=== PATIENT | male | born 2000 | race Caucasian/White ===

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

== ENCOUNTER 2021-01-22 16:50 | Inpatient (IN) | payer OTHER ==
[2021-01-22 17:05] LABS: Glucose,Whole Blood 481 mg/dL (75-99)
[2021-01-22] MEDS ORDERED: INSULIN REGULAR 100 UNIT/ML VIAL IV ONE (17:32)
[2021-01-22] MEDS ORDERED: SODIUM CHLORIDE 0.9% 1,000 ML IV STA (17:32)
--- NOTE | 2021-01-22 17:36 | ED ---
Nausea/Vomiting/Diarrhea HPI - General Chief complaint: Nausea/Vomiting/Diarrhea Stated complaint: Vomiting/weakness Time Seen by Provider: 01/22/21 17:03 Source: patient Mode of arrival: ambulatory Limitations: no limitations - History of Present Illness Initial comments: 20-year-old male with history of uncontrolled type 1 diabetes presents to emergency Department with a chief complaint of nausea vomiting. Patient reports his symptoms began yesterday when he had nausea and multiple episodes of nonbilious and nonbloody vomiting. He denies any associated diarrhea but does report soft stools. Patient reports his most recent hemoglobin A1c reading was 11. Mother reports the patient is not controlling his diabetes well. States he is not taking his medication as directed. He has not seen an dump operator in quite some time. Mother also reported the patient is feeling more depressed than usual and possibly using street drugs. Patient denies any homicidal, suicidal thoughts or ideations. Patient currently lives alone - Related Data Home Medications Medication Instructions Recorded Confirmed Glucagon Emergency Kit 1 mg IM ONCE PRN 01/22/21 01/22/21 Insulin Glargine,Hum.rec.anlog 33 unit SQ HS 01/22/21 01/22/21 [Lantus Solostar] Insulin Lispro [humaLOG Kwikpen] See Protocol SQ ACHS 01/22/21 01/22/21 Allergies Allergy/AdvReac Type Severity Reaction Status Date / Time No Known Allergies Allergy Verified 01/22/21 18:39 Review of Systems ROS Statement: Those systems with pertinent positive or pertinent negative responses have been documented in the HPI. ROS Other: All systems not noted in ROS Statement are negative. Past Medical History Past Medical History: Diabetes Mellitus History of Any Multi-Drug Resistant Organisms: None Reported Past Surgical History: Ear Surgery, Tonsillectomy Past Psychological History: Anxiety, Depression Smoking Status: Current every day smoker Past Alcohol Use History: Occasional Past Drug Use History: Marijuana General Exam Limitations: no limitations General appearance: alert, in no apparent distress Head exam: Present: atraumatic, normocephalic, normal inspection Eye exam: Present: normal appearance, PERRL, EOMI Pupils: Present: normal accommodation ENT exam: Present: normal exam, normal oropharynx, mucous membranes moist, TM's normal bilaterally, normal external ear exam Neck exam: Present: normal inspection, full ROM. Absent: tenderness Respiratory exam: Present: normal lung sounds bilaterally. Absent: respiratory distress, wheezes, rales, rhonchi, stridor Cardiovascular Exam: Present: regular rate, normal rhythm, normal heart sounds. Absent: systolic murmur GI/Abdominal exam: Present: soft. Absent: distended, tenderness, guarding, rebound Extremities exam: Present: normal inspection, full ROM, normal capillary refill. Absent: tenderness, pedal edema, joint swelling Back exam: Present: normal inspection, full ROM. Absent: tenderness, CVA tenderness (R), CVA tenderness (L) Neurological exam: Present: alert, oriented X3 Psychiatric exam: Present: normal affect, normal mood Skin exam: Present: warm, dry, intact, normal color Course Vital Signs 01/22/21 16:57 Temperature 97.9 F Pulse Rate 99 Respiratory 20 Rate Blood Pressure 113/67 O2 Sat by Pulse 100 Oximetry Medical Decision Making - Medical Decision Making 20-year-old male with history of uncontrolled type 1 diabetes presents to emergency Department with a chief complaint of nausea vomiting. On physical examination, patient appears to have slightly dry mucous members. He is otherwise well-appearing with stable vital signs. CBC reveals mild leukocytosis which I suspect is reactive secondary to the vomiting. Patient has blood glucose of 480. Positive acetone. +4 glucose and ketones. Patient is in DKA. Anion gap 27. Patient was initially started on IV bolus fluids and 6 units of regular insulin. She will be started on DKA protocol. I discussed the case with Dr. Randall who will admit. Case also discussed with - Lab Data Result diagrams: 01/22/21 18:00 01/22/21 18:00 Lab Results 01/22/21 01/22/21 01/22/21 Range/Units 17:04 18:00 18:00 WBC 14.2 H (4.0-11.0) k/uL RBC 4.64 (4.30-5.90) m/uL Hgb 14.3 (13.0-17.5) gm/dL Hct 44.1 (39.0-53.0) % MCV 95.1 (80.0-100.0) fL MCH 30.9 (25.0-35.0) pg MCHC 32.5 (31.0-37.0) g/dL RDW 12.9 (11.5-15.5) % Plt Count 352 (150-450) k/uL MPV 7.4 Neutrophils % 78 % Lymphocytes % 15 % Monocytes % 5 % Eosinophils % 1 % Basophils % 0 % Neutrophils # 11.0 H (1.3-7.7) k/uL Lymphocytes # 2.1 (1.0-4.8) k/uL Monocytes # 0.7 (0-1.0) k/uL Eosinophils # 0.1 (0-0.7) k/uL Basophils # 0.0 (0-0.2) k/uL VBG pH (7.31-7.41) VBG pCO2 (37-51) mmHg VBG HCO3 (24-28) mmol/L Sodium (137-145) mmol/L Potassium (3.5-5.1) mmol/L Chloride (98-107) mmol/L Carbon Dioxide (22-30) mmol/L Anion Gap mmol/L BUN (9-20) mg/dL Creatinine (0.66-1.25) mg/dL Est GFR (CKD-EPI)AfAm (>60 ml/min/1.73 sqM) Est GFR (CKD-EPI)NonAf (>60 ml/min/1.73 sqM) Glucose (74-99) mg/dL POC Glucose (mg/dL) 481 H (75-99) mg/dL POC Glu [place] Laboratory Assistant ID Calcium (8.4-10.2) mg/dL Phosphorus (2.5-4.5) mg/dL Magnesium (1.6-2.3) mg/dL Total Bilirubin (0.2-1.3) mg/dL AST (17-59) U/L ALT (4-49) U/L Alkaline Phosphatase (38-126) U/L Total Protein (6.3-8.2) g/dL Albumin (3.5-5.0) g/dL Urine Color Colorless Urine Appearance Clear (Clear) Urine pH 5.0 (5.0-8.0) Ur Specific [place] 1.026 (1.001-1.035) Urine Protein Negative (Negative) Urine Glucose (UA) 4+ H (Negative) Urine Ketones 4+ H (Negative) Urine Blood Negative (Negative) Urine Nitrite Negative (Negative) Urine Bilirubin Negative (Negative) Urine Urobilinogen <2.0 (<2.0) mg/dL Ur Leukocyte Esterase Negative (Negative) Acetone, Qual (Negative) 01/22/21 01/22/21 Range/Units 18:00 18:00 WBC (4.0-11.0) k/uL RBC (4.30-5.90) m/uL Hgb (13.0-17.5) gm/dL Hct (39.0-53.0) % MCV (80.0-100.0) fL MCH (25.0-35.0) pg MCHC (31.0-37.0) g/dL RDW (11.5-15.5) % Plt Count (150-450) k/uL MPV Neutrophils % % Lymphocytes % % Monocytes % % Eosinophils % % Basophils % % Neutrophils # (1.3-7.7) k/uL Lymphocytes # (1.0-4.8) k/uL Monocytes # (0-1.0) k/uL Eosinophils # (0-0.7) k/uL Basophils # (0-0.2) k/uL VBG pH 7.22 L (7.31-7.41) VBG pCO2 23 L (37-51) mmHg VBG HCO3 9 L* (24-28) mmol/L Sodium 133 L (137-145) mmol/L Potassium 4.9 (3.5-5.1) mmol/L Chloride 98 (98-107) mmol/L Carbon Dioxide 8 L* (22-30) mmol/L Anion Gap 27 mmol/L BUN 17 (9-20) mg/dL Creatinine 0.91 (0.66-1.25) mg/dL Est GFR (CKD-EPI)AfAm >90 (>60 ml/min/1.73 sqM) Est GFR (CKD-EPI)NonAf >90 (>60 ml/min/1.73 sqM) Glucose 468 H (74-99) mg/dL POC Glucose (mg/dL) (75-99) mg/dL POC Glu [place] Laboratory Assistant ID Calcium 9.3 (8.4-10.2) mg/dL Phosphorus 4.1 (2.5-4.5) mg/dL Magnesium 1.9 (1.6-2.3) mg/dL Total Bilirubin 0.8 (0.2-1.3) mg/dL AST 19 (17-59) U/L ALT 20 (4-49) U/L Alkaline Phosphatase 139 H (38-126) U/L Total Protein 6.5 (6.3-8.2) g/dL Albumin 4.4 (3.5-5.0) g/dL Urine Color Urine Appearance (Clear) Urine pH (5.0-8.0) Ur Specific [place] (1.001-1.035) Urine Protein (Negative) Urine Glucose (UA) (Negative) Urine Ketones (Negative) Urine Blood (Negative) Urine Nitrite (Negative) Urine Bilirubin (Negative) Urine Urobilinogen (<2.0) mg/dL Ur Leukocyte Esterase (Negative) Acetone, Qual Positive (Negative) Disposition Clinical Impression: DKA (diabetic ketoacidoses) Disposition: ADMITTED IP TO THIS [facility] Condition: Fair Is patient prescribed a controlled substance at d/c from ED?: No Referrals: Umm Oconnor MD [Primary Care Provider] - 1-2 days Time of Disposition: 19:14
[2021-01-22 18:16] LABS: VBG PH 7.22 (7.31-7.41)
[2021-01-22 18:17] LABS: Basophils % (A) 0 %; Eosinophils # (A) 0.1 k/uL (0-0.7); Eosinophils % (A) 1 %; HCT 44.1 % (39.0-53.0); HGB 14.3 gm/dL (13.0-17.5); Lymphocytes # (A) 2.1 k/uL (1.0-4.8); Lymphocytes % (A) 15 %; MCH 30.9 pg (25.0-35.0); MCHC 32.5 g/dL (31.0-37.0); MCV 95.1 fL (80.0-100.0); Mean Platelet Volume 7.4; Monocytes # (A) 0.7 k/uL (0-1.0); Monocytes % (A) 5 %; Neutrophils % (A) 78 %; Platelet Count 352 k/uL (150-450); RBC 4.64 m/uL (4.30-5.90); RDW 12.9 % (11.5-15.5); WBC 14.2 k/uL (4.0-11.0)
[2021-01-22 18:19] LABS: Appearance,Urine Clear (Clear); Bilirubin,Urine Negative (Negative); Blood,Urine Negative (Negative); Color,Urine Colorless; Glucose,Urine (UA) 4+ (Negative); Leukocyte Esterase,Urine Negative (Negative); Nitrite,Urine Negative (Negative); Protein,Urine Negative (Negative); Specific Gravity,Urine 1.026 (1.001-1.035); Urobilinogen,Urine <2.0 mg/dL (<2.0)
[2021-01-22 18:28] LABS: ALT 20 U/L (4-49); AST 19 U/L (17-59); African American GFR (CKD) >90 (>60 ml/min/1.73 sqM); Albumin 4.4 g/dL (3.5-5.0); Alkaline Phosphatase 139 U/L (38-126); Anion Gap 27 mmol/L; Blood Urea Nitrogen 17 mg/dL (9-20); Calcium 9.3 mg/dL (8.4-10.2); Chloride 98 mmol/L (98-107); Glucose 468 mg/dL (74-99); Magnesium 1.9 mg/dL (1.6-2.3); Non-African American GFR(CKD) >90 (>60 ml/min/1.73 sqM); Phosphorus 4.1 mg/dL (2.5-4.5); Potassium 4.9 mmol/L (3.5-5.1); Sodium 133 mmol/L (137-145); Total Bilirubin 0.8 mg/dL (0.2-1.3); Total Protein 6.5 g/dL (6.3-8.2)
[2021-01-22 18:35] LABS: Carbon Dioxide 8 mmol/L (22-30)
[2021-01-22] MEDS ORDERED: SODIUM CHLORIDE 0.9% 1,000 ML IV SCH (18:45)
[2021-01-22] MEDS ORDERED: INSULIN REGULAR 100 UNIT in SODIUM CHLORIDE 0.9% 100 ML IV SCH (18:45)
[2021-01-22 18:46] LABS: Ketones,Urine 4+ (Negative)
[2021-01-22 20:28] VITALS: RESP 18
[2021-01-22 20:49] LABS: Glucose,Whole Blood 303 mg/dL (75-99)
[2021-01-22 22:06] LABS: Glucose,Whole Blood 271 mg/dL (75-99)
[2021-01-22 22:42] LABS: African American GFR (CKD) >90 (>60 ml/min/1.73 sqM); Anion Gap 12 mmol/L; Blood Urea Nitrogen 15 mg/dL (9-20); Carbon Dioxide 15 mmol/L (22-30); Chloride 108 mmol/L (98-107); Glucose 295 mg/dL (74-99); Non-African American GFR(CKD) >90 (>60 ml/min/1.73 sqM); Phosphorus 2.4 mg/dL (2.5-4.5); Potassium 3.7 mmol/L (3.5-5.1); Sodium 135 mmol/L (137-145)
[2021-01-22 22:56] LABS: Glucose,Whole Blood 214 mg/dL (75-99)
[2021-01-22] MEDS: D5-0.45% NACL WITH KCL 20MEQ/L 1,000 ML IV SCH (23:26)
[2021-01-23 00:09] LABS: Glucose,Whole Blood 160 mg/dL (75-99)
[2021-01-23 00:56] LABS: Glucose,Whole Blood 126 mg/dL (75-99)
[2021-01-23 01:56] LABS: Glucose,Whole Blood 104 mg/dL (75-99)
[2021-01-23 02:54] LABS: African American GFR (CKD) >90 (>60 ml/min/1.73 sqM); Anion Gap 6 mmol/L; Blood Urea Nitrogen 13 mg/dL (9-20); Carbon Dioxide 20 mmol/L (22-30); Chloride 111 mmol/L (98-107); Glucose 96 mg/dL (74-99); Non-African American GFR(CKD) >90 (>60 ml/min/1.73 sqM); Phosphorus 1.9 mg/dL (2.5-4.5); Potassium 3.6 mmol/L (3.5-5.1); Sodium 137 mmol/L (137-145)
[2021-01-23 03:00] LABS: Glucose,Whole Blood 90 mg/dL (75-99)
[2021-01-23] MEDS ORDERED: Phosphorus Replacement Protoco 1 EACH MISC MISCELLANE PRN (03:04)
[2021-01-23] MEDS ORDERED: INSULIN NPH 300 UNIT/3 ML VIAL SQ ONE (03:15)
[2021-01-23 03:30] LABS: Glucose,Whole Blood 87 mg/dL (75-99)
[2021-01-23] MEDS: SODIUM PHOSPHATE 10 MMOL in SODIUM CHLORIDE 0.9% 250 ML IVPB SCH ×2 (03:30→06:06)
[2021-01-23 04:31] LABS: Glucose,Whole Blood 108 mg/dL (75-99)
[2021-01-23] MEDS: D5-0.45% NACL WITH KCL 20MEQ/L 1,000 ML IV SCH ×2 (06:06→12:21)
[2021-01-23 07:02] LABS: Glucose,Whole Blood 139 mg/dL (75-99)
[2021-01-23] MEDS: INSULIN ASPART (NovoLOG) 100 UNIT/ML VIAL SQ SCH ×4 (07:05→12:21)
[2021-01-23 07:58] LABS: African American GFR (CKD) >90 (>60 ml/min/1.73 sqM); Anion Gap 5 mmol/L; Blood Urea Nitrogen 12 mg/dL (9-20); Carbon Dioxide 20 mmol/L (22-30); Chloride 111 mmol/L (98-107); Non-African American GFR(CKD) >90 (>60 ml/min/1.73 sqM); Potassium 4.2 mmol/L (3.5-5.1); Sodium 136 mmol/L (137-145)
[2021-01-23 12:19] LABS: Glucose,Whole Blood 225 mg/dL (75-99)
[2021-01-23 12:28] VITALS: BP 102/64; PULSE 60; TEMP 97.9
--- NOTE | 2021-01-23 15:32 | P.DS ---
Providers Date of admission: 01/22/21 19:19 Attending physician: Manjit Randall Consults: 01/22/21 19:15 Consult Physician Routine Consulting Provider: George López Consult Reason/Comments: Concern for depression, no homicidal or suicidal thoughts Do you want consulting provider notified?: Yes Primary care physician: Umm Oconnor Hospital Course: Please refer to my history of present illness for further details Patient Condition at Discharge: Fair Plan - Discharge Summary Discharge Rx Participant: Yes New Discharge Prescriptions: Continue Glucagon Emergency Kit 1 mg IM ONCE PRN PRN Reason: Hypoglycemia Insulin Lispro [humaLOG Kwikpen] See Protocol SQ ACHS #5 pen Insulin Glargine,Hum.rec.anlog [Lantus Solostar] 33 unit SQ HS #5 pen Discharge Medication List Glucagon Emergency Kit 1 mg IM ONCE PRN 01/22/21 [History] Insulin Glargine,Hum.rec.anlog [Lantus Solostar] 33 unit SQ HS #5 pen 01/23/21 [Rx] Insulin Lispro [humaLOG Kwikpen] See Protocol SQ ACHS #5 pen 01/23/21 [Rx] Follow up Appointment(s)/Referral(s): Rafael Connors MD [REFERRING] - 1 Week Umm Oconnor MD [Primary Care Provider] - 3 Days Patient Instructions/Handouts: Diabetic Ketoacidosis (DC) Discharge Disposition: HOME SELF-CARE
--- NOTE | 2021-01-23 15:32 | P.HPIM ---
History of Present Illness 20-year-old male came in with compensative nausea vomiting abdominal discomfort nonbilious vomiting found to be in diabetic ketoacidosis patient has type 1 diabetes mellitus and patient does appear to have diabetic peripheral neuropathy patient most recent hemoglobin A1c is around 11. Patient was admitted for diabetic ketoacidosis. Her his anion gap resolved patient is transitioned to subcutaneous insulin. Patient usually uses 33 units of long-acting insulin which she will resume along with sliding scale with each meal. Patient is noncompliant with his insulin patient misses insulin often. Patient denied any fever chills. Patient is clinically doing well will be discharged today and extensive counseling regarding compliance was provided. Prescriptions for his insulin was provided as well. Patient will be referred to mail sorter. Review of Systems REVIEW OF SYSTEMS: CONSTITUTIONAL: No fever, no malaise, no fatigue. HEENT: No recent visual problems or hearing problems. Denied any sore throat. CARDIOVASCULAR: No chest pain, orthopnea, PND, no palpitations, no syncope. PULMONARY: No shortness of breath, no cough, no hemoptysis. GASTROINTESTINAL: As mentioned in HPI NEUROLOGICAL: No headaches, no weakness, no numbness. HEMATOLOGICAL: Denies any bleeding or petechiae. GENITOURINARY: Denies any burning micturition, frequency, or urgency. MUSCULOSKELETAL/RHEUMATOLOGICAL: Denies any joint pain, swelling, or any muscle pain. ENDOCRINE: Denies any polyuria or polydipsia. The rest of the 14-point review of systems is negative. Past Medical History Past Medical History: Diabetes Mellitus History of Any Multi-Drug Resistant Organisms: None Reported Past Surgical History: Ear Surgery, Tonsillectomy Past Psychological History: Anxiety, Depression Smoking Status: Current every day smoker Past Alcohol Use History: Occasional Past Drug Use History: Marijuana Additional Drug Use History / Comment(s): smoke 1-2 cigs per day Medications and Allergies Home Medications Medication Instructions Recorded Confirmed Type Glucagon Emergency Kit 1 mg IM ONCE PRN 01/22/21 01/22/21 History Insulin Glargine,Hum.rec.anlog 33 unit SQ HS #5 pen 01/23/21 Rx [Lantus Solostar] Insulin Lispro [humaLOG Kwikpen] See Protocol SQ ACHS #5 pen 01/23/21 Rx Allergies Allergy/AdvReac Type Severity Reaction Status Date / Time No Known Allergies Allergy Verified 01/22/21 18:39 Physical Exam Vitals: Vital Signs Temp Pulse Pulse Resp BP BP Pulse Ox 01/23/21 12:00 97.9 F 60 18 102/64 100 01/23/21 08:00 97.8 F 64 18 93/59 100 01/23/21 04:00 97.7 F 72 18 96/51 98 01/23/21 00:00 98.1 F 75 18 109/64 100 01/22/21 20:27 76 18 120/76 99 01/22/21 20:00 98.2 F 88 16 103/58 100 01/22/21 16:57 97.9 F 99 20 113/67 100 Intake and Output 01/23/21 01/23/21 01/23/21 06:59 14:59 22:59 Intake Total 3305.407 Balance 3305.407 Intake: Intake, IV Titration 2825.407 Amount D5-0.45% NaCl with KCl 1000 20Meq/l 1,000 ml @ 150 mls/hr IV .Q6H40M MAURY Rx# :[id number] Insulin Regular 100 unit 25.407 In Sodium Chloride 0.9% 100 ml @ 0.1 UNITS/KG/HR 5.25 mls/hr IV .[id number] MAURY Rx#:[id number] Sodium Chloride 0.9% 1, 800 000 ml @ 200 mls/hr IV . Q5H [facility]URY Rx#:[id number] Sodium Chloride 0.9% 1, 1000 000 ml @ 999 mls/hr IV . Q1H1M STA Rx#:[id number] Oral 480 Other: Voiding Method Toilet # Voids 3 Weight 52 kg PHYSICAL EXAMINATION: GENERAL: The patient is alert and oriented x3, not in any acute distress. Well developed, well nourished. HEENT: Pupils are round and equally reacting to light. EOMI. No scleral icterus. No conjunctival pallor. Normocephalic, atraumatic. No pharyngeal erythema. No thyromegaly. CARDIOVASCULAR: S1 and S2 present. No murmurs, rubs, or gallops. PULMONARY: Chest is clear to auscultation, no wheezing or crackles. ABDOMEN: Soft, nontender, nondistended, normoactive bowel sounds. No palpable organomegaly. MUSCULOSKELETAL: No joint swelling or deformity. EXTREMITIES: No cyanosis, clubbing, or pedal edema. NEUROLOGICAL: Gross neurological examination did not reveal any focal deficits. SKIN: No rashes. Results CBC & Chem 7: 01/22/21 18:00 01/23/21 07:04 Labs: Abnormal Lab Results - Last 24 Hours (Table) 01/22/21 01/22/21 01/22/21 Range/Units 17:04 18:00 18:00 WBC 14.2 H (4.0-11.0) k/uL Neutrophils # 11.0 H (1.3-7.7) k/uL VBG pH (7.31-7.41) VBG pCO2 (37-51) mmHg VBG HCO3 (24-28) mmol/L Sodium (137-145) mmol/L Chloride (98-107) mmol/L Carbon Dioxide (22-30) mmol/L Creatinine (0.66-1.25) mg/dL Glucose (74-99) mg/dL POC Glucose (mg/dL) 481 H (75-99) mg/dL Phosphorus (2.5-4.5) mg/dL Alkaline Phosphatase (38-126) U/L Urine Glucose (UA) 4+ H (Negative) Urine Ketones 4+ H (Negative) 01/22/21 01/22/21 01/22/21 Range/Units 18:00 18:00 20:47 WBC (4.0-11.0) k/uL Neutrophils # (1.3-7.7) k/uL VBG pH 7.22 L (7.31-7.41) VBG pCO2 23 L (37-51) mmHg VBG HCO3 9 L* (24-28) mmol/L Sodium 133 L (137-145) mmol/L Chloride (98-107) mmol/L Carbon Dioxide 8 L* (22-30) mmol/L Creatinine (0.66-1.25) mg/dL Glucose 468 H (74-99) mg/dL POC Glucose (mg/dL) 303 H (75-99) mg/dL Phosphorus (2.5-4.5) mg/dL Alkaline Phosphatase 139 H (38-126) U/L Urine Glucose (UA) (Negative) Urine Ketones (Negative) 01/22/21 01/22/21 01/22/21 Range/Units 21:56 22:04 22:55 WBC (4.0-11.0) k/uL Neutrophils # (1.3-7.7) k/uL VBG pH (7.31-7.41) VBG pCO2 (37-51) mmHg VBG HCO3 (24-28) mmol/L Sodium 135 L (137-145) mmol/L Chloride 108 H (98-107) mmol/L Carbon Dioxide 15 L (22-30) mmol/L Creatinine (0.66-1.25) mg/dL Glucose 295 H (74-99) mg/dL POC Glucose (mg/dL) 271 H 214 H (75-99) mg/dL Phosphorus 2.4 L (2.5-4.5) mg/dL Alkaline Phosphatase (38-126) U/L Urine Glucose (UA) (Negative) Urine Ketones (Negative) 01/23/21 01/23/21 01/23/21 Range/Units 00:07 00:54 01:55 WBC (4.0-11.0) k/uL Neutrophils # (1.3-7.7) k/uL VBG pH (7.31-7.41) VBG pCO2 (37-51) mmHg VBG HCO3 (24-28) mmol/L Sodium (137-145) mmol/L Chloride (98-107) mmol/L Carbon Dioxide (22-30) mmol/L Creatinine (0.66-1.25) mg/dL Glucose (74-99) mg/dL POC Glucose (mg/dL) 160 H 126 H 104 H (75-99) mg/dL Phosphorus (2.5-4.5) mg/dL Alkaline Phosphatase (38-126) U/L Urine Glucose (UA) (Negative) Urine Ketones (Negative) 01/23/21 01/23/21 01/23/21 Range/Units 02:30 04:28 06:56 WBC (4.0-11.0) k/uL Neutrophils # (1.3-7.7) k/uL VBG pH (7.31-7.41) VBG pCO2 (37-51) mmHg VBG HCO3 (24-28) mmol/L Sodium (137-145) mmol/L Chloride 111 H (98-107) mmol/L Carbon Dioxide 20 L (22-30) mmol/L Creatinine 0.54 L (0.66-1.25) mg/dL Glucose (74-99) mg/dL POC Glucose (mg/dL) 108 H 139 H (75-99) mg/dL Phosphorus 1.9 L (2.5-4.5) mg/dL Alkaline Phosphatase (38-126) U/L Urine Glucose (UA) (Negative) Urine Ketones (Negative) 01/23/21 01/23/21 Range/Units 07:04 11:54 WBC (4.0-11.0) k/uL Neutrophils # (1.3-7.7) k/uL VBG pH (7.31-7.41) VBG pCO2 (37-51) mmHg VBG HCO3 (24-28) mmol/L Sodium 136 L (137-145) mmol/L Chloride 111 H (98-107) mmol/L Carbon Dioxide 20 L (22-30) mmol/L Creatinine 0.54 L (0.66-1.25) mg/dL Glucose (74-99) mg/dL POC Glucose (mg/dL) 225 H (75-99) mg/dL Phosphorus (2.5-4.5) mg/dL Alkaline Phosphatase (38-126) U/L Urine Glucose (UA) (Negative) Urine Ketones (Negative) Assessment and Plan Plan: -Diabetic ketoacidosis: Due to noncompliance with his medications DKA resolved patient will be discharged today with the above-mentioned plan -Type 2 diabetes mellitus -Diabetic peripheral neuropathy -Hypovolemic hyponatremia resolved with IV fluids -Anion gap metabolic acidosis secondary to DKA resolved. -Leukocytosis reactive.
[2021-01-23] MEDS ORDERED: INSULIN DETEMIR (LEVEMIR) 100 UNIT/ML SYR SQ SCH (21:00)
== END 2021-01-23 14:42 | disposition home or self-care (01) | DRG 638 ==
LOC: EC 16:50 → 3SCARD 19:19
PROVIDERS: ADMIT Hospitalist; ATTEND Hospitalist
DX: E10.10 Type 1 diabetes mellitus with ketoacidosis without coma (principal); E87.1 Hypo-osmolality and hyponatremia; E10.42 Type 1 diabetes mellitus with diabetic polyneuropathy; Z79.4 Long term (current) use of insulin; Z20.822 Contact with and (suspected) exposure to COVID-19; E86.1 Hypovolemia; T38.3X6A Underdosing of insulin and oral hypoglycemic [antidiabetic] drugs, initial encounter; F17.200 Nicotine dependence, unspecified, uncomplicated; D72.829 Elevated white blood cell count, unspecified; Z91.128 Patient's intentional underdosing of medication regimen for other reason; Z86.59 Personal history of other mental and behavioral disorders
CPT/HCPCS: 36415; 80051; 80053; 81003; 82009; 82565; 82803; 82947; 83735; 84100; 84520; 85025; 87635; 96361; 96374; 99285

== ENCOUNTER 2021-04-16 11:45 | Inpatient (IN) | payer OTHER ==
[2021-04-16] MEDS ORDERED: ONDANSETRON 4 MG/2 ML VIAL IVP STA (12:04)
[2021-04-16] MEDS ORDERED: SODIUM CHLORIDE 0.9% 1,000 ML IV STA (12:05)
[2021-04-16 12:32] LABS: Basophils # (A) 0.1 k/uL (0-0.2); Basophils % (A) 1 %; Eosinophils # (A) 0.1 k/uL (0-0.7); Eosinophils % (A) 1 %; HCT 48.7 % (39.0-53.0); HGB 15.9 gm/dL (13.0-17.5); Lymphocytes # (A) 1.7 k/uL (1.0-4.8); Lymphocytes % (A) 24 %; MCH 31.7 pg (25.0-35.0); MCHC 32.6 g/dL (31.0-37.0); MCV 97.3 fL (80.0-100.0); Mean Platelet Volume 8.2; Monocytes # (A) 0.3 k/uL (0-1.0); Monocytes % (A) 4 %; Neutrophils % (A) 68 %; Platelet Count 306 k/uL (150-450); RBC 5.01 m/uL (4.30-5.90); RDW 12.5 % (11.5-15.5); WBC 7.4 k/uL (4.0-11.0)
[2021-04-16 12:32] LABS: Appearance,Urine Clear (Clear); Bilirubin,Urine Negative (Negative); Blood,Urine Negative (Negative); Color,Urine Colorless; Glucose,Urine (UA) 4+ (Negative); Leukocyte Esterase,Urine Negative (Negative); Nitrite,Urine Negative (Negative); Protein,Urine Negative (Negative); Specific Gravity,Urine 1.028 (1.001-1.035); Urobilinogen,Urine <2.0 mg/dL (<2.0)
[2021-04-16 12:43] LABS: ALT 28 U/L (4-49); AST 25 U/L (17-59); African American GFR (CKD) >90 (>60 ml/min/1.73 sqM); Albumin 4.8 g/dL (3.5-5.0); Alkaline Phosphatase 182 U/L (38-126); Anion Gap 24 mmol/L; Blood Urea Nitrogen 20 mg/dL (9-20); Calcium 9.8 mg/dL (8.4-10.2); Carbon Dioxide 13 mmol/L (22-30); Chloride 97 mmol/L (98-107); Magnesium 2.1 mg/dL (1.6-2.3); Non-African American GFR(CKD) >90 (>60 ml/min/1.73 sqM); Potassium 4.9 mmol/L (3.5-5.1); Sodium 134 mmol/L (137-145); Total Bilirubin 0.7 mg/dL (0.2-1.3)
[2021-04-16 12:47] LABS: Amphetamine Screen,Urine Not Detected (NotDetected); Barbiturate Screen,Urine Not Detected (NotDetected); Benzodiazepines Screen,Urine Not Detected (NotDetected); Cocaine Screen,Urine Not Detected (NotDetected); Methadone Screen, Urine Not Detected (NotDetected); Opiate Screen,Urine Not Detected (NotDetected); Oxycodone Screen, Urine Not Detected (NotDetected); Phencyclidine Screen,Urine Not Detected (NotDetected); Tricyclic Antidepressant,Urine Not Detected (NotDetected); Urn Cannabinoid Scrn Detected (NotDetected)
[2021-04-16 12:52] LABS: Glucose 543 mg/dL (74-99)
--- NOTE | 2021-04-16 12:53 | ED ---
General Adult HPI - General Chief complaint: Recheck/Abnormal Lab/Rx Stated complaint: High sugar Time Seen by Provider: 04/16/21 11:47 Source: patient, EMS, RN notes reviewed Mode of arrival: EMS Limitations: no limitations - History of Present Illness Initial comments: This a 20-year-old male presents emergency Department with chief complaint of hyperglycemia. Patient states he gets take his long-acting insulin. He did not give himself any short acting insulin today. Patient states which has been elevated. Patient states he felt nauseated slightly dizzy while he was driving pulled over called EMS. Patient did have some nausea vomiting emergency department. No which chest pain back pain or dysuria has noted urinary frequency and increased thirst again. - Related Data Home Medications Medication Instructions Recorded Confirmed Glucagon Emergency Kit 1 mg IM ONCE PRN 01/22/21 01/22/21 Previous Rx's Medication Instructions Recorded Insulin Glargine,Hum.rec.anlog 33 unit SQ HS #5 pen 01/23/21 [Lantus Solostar] Insulin Lispro [humaLOG Kwikpen] See Protocol SQ ACHS #5 pen 01/23/21 Allergies Allergy/AdvReac Type Severity Reaction Status Date / Time No Known Allergies Allergy Verified 01/22/21 18:39 Review of Systems ROS Statement: Those systems with pertinent positive or pertinent negative responses have been documented in the HPI. ROS Other: All systems not noted in ROS Statement are negative. Past Medical History Past Medical History: Diabetes Mellitus History of Any Multi-Drug Resistant Organisms: None Reported Past Surgical History: Ear Surgery, Tonsillectomy Past Psychological History: Anxiety, Depression Smoking Status: Current every day smoker Past Alcohol Use History: Occasional Past Drug Use History: Marijuana General Exam Limitations: no limitations General appearance: alert, in no apparent distress Head exam: Present: atraumatic, normocephalic, normal inspection Eye exam: Present: normal appearance, PERRL, EOMI. Absent: scleral icterus, conjunctival injection, periorbital swelling Neck exam: Present: normal inspection. Absent: tenderness, meningismus, lymphadenopathy Respiratory exam: Present: normal lung sounds bilaterally. Absent: respiratory distress, wheezes, rales, rhonchi, stridor Cardiovascular Exam: Present: regular rate, normal rhythm, normal heart sounds. Absent: systolic murmur, diastolic murmur, rubs, gallop, clicks GI/Abdominal exam: Present: soft, normal bowel sounds. Absent: distended, tenderness, guarding, rebound, rigid Neurological exam: Present: alert Skin exam: Present: warm, dry, intact, normal color. Absent: rash Course Vital Signs 04/16/21 04/16/21 11:48 13:14 Temperature 97.9 F Pulse Rate 91 86 Respiratory 18 16 Rate Blood Pressure 113/78 109/66 O2 Sat by Pulse 100 99 Oximetry Medical Decision Making - Medical Decision Making 20-year-old male presents emergency from for hyperglycemia. Patient found to be in DKA. Patient's bicarbonate 13, anion gap 24. Patient was started on IV fluids including 2 L bolus, maintenance fluids, insulin drip case discussed with Mallika physician. - Lab Data Result diagrams: 04/16/21 12:13 04/16/21 12:13 Lab Results 04/16/21 04/16/21 04/16/21 Range/Units 12:13 12:13 12:14 WBC 7.4 (4.0-11.0) k/uL RBC 5.01 (4.30-5.90) m/uL Hgb 15.9 (13.0-17.5) gm/dL Hct 48.7 (39.0-53.0) % MCV 97.3 (80.0-100.0) fL MCH 31.7 (25.0-35.0) pg MCHC 32.6 (31.0-37.0) g/dL RDW 12.5 (11.5-15.5) % Plt Count 306 (150-450) k/uL MPV 8.2 Neutrophils % 68 % Lymphocytes % 24 % Monocytes % 4 % Eosinophils % 1 % Basophils % 1 % Neutrophils # 5.0 (1.3-7.7) k/uL Lymphocytes # 1.7 (1.0-4.8) k/uL Monocytes # 0.3 (0-1.0) k/uL Eosinophils # 0.1 (0-0.7) k/uL Basophils # 0.1 (0-0.2) k/uL Sodium 134 L (137-145) mmol/L Potassium 4.9 (3.5-5.1) mmol/L Chloride 97 L (98-107) mmol/L Carbon Dioxide 13 L (22-30) mmol/L Anion Gap 24 mmol/L BUN 20 (9-20) mg/dL Creatinine 0.78 (0.66-1.25) mg/dL Est GFR (CKD-EPI)AfAm >90 (>60 ml/min/1.73 sqM) Est GFR (CKD-EPI)NonAf >90 (>60 ml/min/1.73 sqM) Glucose 543 H* (74-99) mg/dL Calcium 9.8 (8.4-10.2) mg/dL Magnesium 2.1 (1.6-2.3) mg/dL Total Bilirubin 0.7 (0.2-1.3) mg/dL AST 25 (17-59) U/L ALT 28 (4-49) U/L Alkaline Phosphatase 182 H (38-126) U/L Total Protein 7.0 (6.3-8.2) g/dL Albumin 4.8 (3.5-5.0) g/dL Urine Color Colorless Urine Appearance Clear (Clear) Urine pH 5.0 (5.0-8.0) Ur Specific [place] 1.028 (1.001-1.035) Urine Protein Negative (Negative) Urine Glucose (UA) 4+ H (Negative) Urine Ketones 4+ H (Negative) Urine Blood Negative (Negative) Urine Nitrite Negative (Negative) Urine Bilirubin Negative (Negative) Urine Urobilinogen <2.0 (<2.0) mg/dL Ur Leukocyte Esterase Negative (Negative) Urine Opiates Screen (NotDetected) Ur Oxycodone Screen (NotDetected) Urine Methadone Screen (NotDetected) Ur Propoxyphene Screen (NotDetected) Ur Barbiturates Screen (NotDetected) U Tricyclic Antidepress (NotDetected) Ur Phencyclidine Scrn (NotDetected) Ur Amphetamines Screen (NotDetected) U Methamphetamines Scrn (NotDetected) U Benzodiazepines Scrn (NotDetected) Urine Cocaine Screen (NotDetected) U Marijuana (THC) Screen (NotDetected) Acetone, Qual Positive (Negative) 04/16/21 Range/Units 12:14 WBC (4.0-11.0) k/uL RBC (4.30-5.90) m/uL Hgb (13.0-17.5) gm/dL Hct (39.0-53.0) % MCV (80.0-100.0) fL MCH (25.0-35.0) pg MCHC (31.0-37.0) g/dL RDW (11.5-15.5) % Plt Count (150-450) k/uL MPV Neutrophils % % Lymphocytes % % Monocytes % % Eosinophils % % Basophils % % Neutrophils # (1.3-7.7) k/uL Lymphocytes # (1.0-4.8) k/uL Monocytes # (0-1.0) k/uL Eosinophils # (0-0.7) k/uL Basophils # (0-0.2) k/uL Sodium (137-145) mmol/L Potassium (3.5-5.1) mmol/L Chloride (98-107) mmol/L Carbon Dioxide (22-30) mmol/L Anion Gap mmol/L BUN (9-20) mg/dL Creatinine (0.66-1.25) mg/dL Est GFR (CKD-EPI)AfAm (>60 ml/min/1.73 sqM) Est GFR (CKD-EPI)NonAf (>60 ml/min/1.73 sqM) Glucose (74-99) mg/dL Calcium (8.4-10.2) mg/dL Magnesium (1.6-2.3) mg/dL Total Bilirubin (0.2-1.3) mg/dL AST (17-59) U/L ALT (4-49) U/L Alkaline Phosphatase (38-126) U/L Total Protein (6.3-8.2) g/dL Albumin (3.5-5.0) g/dL Urine Color Urine Appearance (Clear) Urine pH (5.0-8.0) Ur Specific [place] (1.001-1.035) Urine Protein (Negative) Urine Glucose (UA) (Negative) Urine Ketones (Negative) Urine Blood (Negative) Urine Nitrite (Negative) Urine Bilirubin (Negative) Urine Urobilinogen (<2.0) mg/dL Ur Leukocyte Esterase (Negative) Urine Opiates Screen Not Detected (NotDetected) Ur Oxycodone Screen Not Detected (NotDetected) Urine Methadone Screen Not Detected (NotDetected) Ur Propoxyphene Screen Not Detected (NotDetected) Ur Barbiturates Screen Not Detected (NotDetected) U Tricyclic Antidepress Not Detected (NotDetected) Ur Phencyclidine Scrn Not Detected (NotDetected) Ur Amphetamines Screen Not Detected (NotDetected) U Methamphetamines Scrn Not Detected (NotDetected) U Benzodiazepines Scrn Not Detected (NotDetected) Urine Cocaine Screen Not Detected (NotDetected) U Marijuana (THC) Screen Detected H (NotDetected) Acetone, Qual (Negative) Critical Care Time Critical Care Time: Yes Total Critical Care Time: 35 Disposition Clinical Impression: DKA (diabetic ketoacidoses) Disposition: ADMITTED IP TO THIS [facility] Condition: Fair Referrals: Umm Oconnor MD [Primary Care Provider] - 1-2 days
[2021-04-16 13:12] LABS: Ketones,Urine 4+ (Negative)
[2021-04-16] MEDS ORDERED: SODIUM CHLORIDE 0.9% 1,000 ML IV ONE (13:17)
[2021-04-16] MEDS ORDERED: INSULIN REGULAR 100 UNIT in SODIUM CHLORIDE 0.9% 100 ML IV SCH (13:30)
[2021-04-16 13:33] LABS: Glucose,Whole Blood 501 mg/dL (75-99)
[2021-04-16] MEDS: SODIUM CHLORIDE 0.9% 1,000 ML IV SCH ×2 (13:37→15:52)
[2021-04-16 14:15] VITALS: BMI 20.5
[2021-04-16] MEDS ORDERED: ACETAMINOPHEN TAB 325 MG TAB PO PRN (14:21)
[2021-04-16] MEDS ORDERED: ONDANSETRON 4 MG/2 ML VIAL IVP PRN (14:21)
--- NOTE | 2021-04-16 14:23 | P.HPIM ---
History of Present Illness H&P Date: 04/16/21 Chief Complaint: Nausea and vomiting This is a 20-year-old male with past medical history significant for type 1 diabetes that presented to the emergency room with worsening nausea and vomiting. Patient said that he was unable to take his insulin yesterday or today and this morning was feeling nauseous and vomited twice. They checked his blood glucose and was elevated so he decided to come to the emergency room. In the ER, patient was found to have evidence of DKA and was admitted to the hospital for further management. He is feeling better at the time of my evalua tion. Denies any abdominal pain. Review of Systems Review of system: 14 points review of systems were obtained and were negative except to what were mentioned in the HPI. Past Medical History Past Medical History: Diabetes Mellitus History of Any Multi-Drug Resistant Organisms: None Reported Past Surgical History: Ear Surgery, Tonsillectomy Past Psychological History: Anxiety, Depression Smoking Status: Current every day smoker Past Alcohol Use History: Occasional Past Drug Use History: Marijuana Additional Drug Use History / Comment(s): smoke 1-2 cigs per day Medications and Allergies Home Medications Medication Instructions Recorded Confirmed Type Glucagon Emergency Kit 1 mg IM ONCE PRN 01/22/21 04/16/21 History Insulin Glargine,Hum.rec.anlog 33 unit SQ HS #5 pen 01/23/21 04/16/21 Rx [Lantus Solostar] Insulin Lispro [humaLOG Kwikpen] See Protocol SQ TID-W/MEALS 04/16/21 04/16/21 History Allergies Allergy/AdvReac Type Severity Reaction Status Date / Time No Known Allergies Allergy Verified 04/16/21 13:45 Physical Exam Vitals: Vital Signs Temp Pulse Resp BP Pulse Ox 04/16/21 13:14 86 16 109/66 99 04/16/21 11:48 97.9 F 91 18 113/78 100 Intake and Output 04/15/21 04/16/21 04/16/21 22:59 06:59 14:59 Other: Weight 54.431 kg General: The patient is awake and alert, in no distress Eye: there is normal conjunctiva bilaterally. Neck: The neck is supple, there is no JVD. Cardiovascular: Normal S1-S2, no S3-S4, no murmurs. Respiratory: Lungs clear to auscultation bilaterally Gastrointestinal: Abdomen is soft, nontender Musculoskeletal: There is no pedal edema. Neurological:. Speech is normal. Skin: Skin is warm and dry Results CBC & Chem 7: 04/16/21 12:13 04/16/21 12:13 Labs: Abnormal Lab Results - Last 24 Hours (Table) 04/16/21 04/16/21 04/16/21 Range/Units 12:13 12:14 12:14 Sodium 134 L (137-145) mmol/L Chloride 97 L (98-107) mmol/L Carbon Dioxide 13 L (22-30) mmol/L Glucose 543 H* (74-99) mg/dL POC Glucose (mg/dL) (75-99) mg/dL Alkaline Phosphatase 182 H (38-126) U/L Urine Glucose (UA) 4+ H (Negative) Urine Ketones 4+ H (Negative) U Marijuana (THC) Screen Detected H (NotDetected) 04/16/21 Range/Units 13:27 Sodium (137-145) mmol/L Chloride (98-107) mmol/L Carbon Dioxide (22-30) mmol/L Glucose (74-99) mg/dL POC Glucose (mg/dL) 501 H (75-99) mg/dL Alkaline Phosphatase (38-126) U/L Urine Glucose (UA) (Negative) Urine Ketones (Negative) U Marijuana (THC) Screen (NotDetected) Assessment and Plan Assessment: 1. DKA 2. High anion gap metabolic acidosis 3. Type 1 diabetes mellitus Today, I reviewed his medication list and lab work results. Continue IV insulin drip per DKA protocol. Aggressive IV fluid hydration. Nothing by mouth for now. IV Zofran as needed. Repeat lab work every 4 hours per protocol. Patient was counseled extensively regarding compliance with his medications.
[2021-04-16 14:31] LABS: Glucose,Whole Blood 408 mg/dL (75-99)
[2021-04-16 14:43] LABS: Glucose,Whole Blood 366 mg/dL (75-99)
[2021-04-16 15:38] LABS: Glucose,Whole Blood 268 mg/dL (75-99)
[2021-04-16] MEDS: D5-0.45% NACL WITH KCL 20MEQ/L 1,000 ML IV SCH (15:52)
[2021-04-16 16:33] LABS: Glucose,Whole Blood 230 mg/dL (75-99)
[2021-04-16 17:00] VITALS: RESP 18
[2021-04-16 17:32] LABS: Glucose,Whole Blood 199 mg/dL (75-99)
[2021-04-16 17:36] LABS: African American GFR (CKD) >90 (>60 ml/min/1.73 sqM); Anion Gap 16 mmol/L; Blood Urea Nitrogen 17 mg/dL (9-20); Calcium 8.6 mg/dL (8.4-10.2); Carbon Dioxide 12 mmol/L (22-30); Chloride 106 mmol/L (98-107); Glucose 241 mg/dL (74-99); Non-African American GFR(CKD) >90 (>60 ml/min/1.73 sqM); Phosphorus 3.5 mg/dL (2.5-4.5); Potassium 4.3 mmol/L (3.5-5.1); Sodium 134 mmol/L (137-145)
[2021-04-16 18:33] LABS: Glucose,Whole Blood 276 mg/dL (75-99)
[2021-04-16 19:32] LABS: Glucose,Whole Blood 217 mg/dL (75-99)
[2021-04-16 20:32] LABS: Glucose,Whole Blood 193 mg/dL (75-99)
[2021-04-16 21:38] LABS: Glucose,Whole Blood 125 mg/dL (75-99)
[2021-04-16 22:29] LABS: African American GFR (CKD) >90 (>60 ml/min/1.73 sqM); Anion Gap 5 mmol/L; Blood Urea Nitrogen 15 mg/dL (9-20); Carbon Dioxide 22 mmol/L (22-30); Chloride 108 mmol/L (98-107); Glucose 125 mg/dL (74-99); Non-African American GFR(CKD) >90 (>60 ml/min/1.73 sqM); Phosphorus 3.7 mg/dL (2.5-4.5); Potassium 4.1 mmol/L (3.5-5.1); Sodium 135 mmol/L (137-145)
[2021-04-16 22:33] LABS: Glucose,Whole Blood 93 mg/dL (75-99)
[2021-04-16 23:32] LABS: Glucose,Whole Blood 75 mg/dL (75-99)
[2021-04-17 00:33] LABS: Glucose,Whole Blood 86 mg/dL (75-99)
[2021-04-17] MEDS ORDERED: INSULIN DETEMIR (LEVEMIR) 100 UNIT/ML SYR SQ SCH (01:10)
[2021-04-17 01:34] LABS: Glucose,Whole Blood 134 mg/dL (75-99)
[2021-04-17] MEDS: SODIUM CHLORIDE 0.9% 1,000 ML IV SCH ×3 (02:26→10:40)
[2021-04-17] MEDS: D5-0.45% NACL WITH KCL 20MEQ/L 1,000 ML IV SCH ×2 (02:27→06:22)
[2021-04-17 06:04] LABS: Glucose,Whole Blood 230 mg/dL (75-99)
[2021-04-17 07:45] VITALS: BP 96/60; PULSE 64; TEMP 97.8
[2021-04-17] MEDS: INSULIN ASPART (NovoLOG) 100 UNIT/ML VIAL SQ SCH ×2 (07:46→12:30)
[2021-04-17 07:59] LABS: African American GFR (CKD) >90 (>60 ml/min/1.73 sqM); Anion Gap 7 mmol/L; Blood Urea Nitrogen 12 mg/dL (9-20); Calcium 8.6 mg/dL (8.4-10.2); Carbon Dioxide 19 mmol/L (22-30); Chloride 108 mmol/L (98-107); Glucose 189 mg/dL (74-99); Magnesium 1.6 mg/dL (1.6-2.3); Non-African American GFR(CKD) >90 (>60 ml/min/1.73 sqM); Phosphorus 3.5 mg/dL (2.5-4.5); Potassium 4.1 mmol/L (3.5-5.1); Sodium 134 mmol/L (137-145)
[2021-04-17] MEDS ORDERED: PANTOPRAZOLE 40 MG/10 ML VIAL IVP SCH (09:00)
[2021-04-17 11:55] LABS: Glucose,Whole Blood 172 mg/dL (75-99)
--- NOTE | 2021-04-17 12:50 | P.DS ---
Providers Date of admission: 04/16/21 13:22 Expected date of discharge: 04/17/21 Attending physician: Abhinav Wild Primary care physician: Umm Oconnor [facility] Course: This is a 20-year-old male with past medical history significant for type 1 diabetes that presented to the emergency room with worsening nausea and vomiting. In the ER, patient was found to have evidence of DKA and was admitted to the hospital for further management. Below is a listof his medical problems 1. DKA 2. High anion gap metabolic acidosis 3. Type 1 diabetes mellitus Patient was seen and evaluated on the day of discharge. He denies any abdominal pain. Lab work improved significantly. He would be discharged home in a stable condition. Counseled extensively regarding medication compliance. Patient Condition at Discharge: Fair Plan - Discharge Summary New Discharge Prescriptions: Continue Glucagon Emergency Kit 1 mg IM ONCE PRN PRN Reason: Hypoglycemia Insulin Lispro [humaLOG Kwikpen] See Protocol SQ TID-W/MEALS Insulin Glargine,Hum.rec.anlog [Lantus Solostar] 33 unit SQ HS #5 pen Discharge Medication List Glucagon Emergency Kit 1 mg IM ONCE PRN 01/22/21 [History] Insulin Glargine,Hum.rec.anlog [Lantus Solostar] 33 unit SQ HS #5 pen 01/23/21 [Rx] Insulin Lispro [humaLOG Kwikpen] See Protocol SQ TID-W/MEALS 04/16/21 [History] Follow up Appointment(s)/Referral(s): Umm Oconnor MD [Primary Care Provider] - 1-2 days Discharge Disposition: HOME SELF-CARE
== END 2021-04-17 15:36 | disposition home or self-care (01) | DRG 639 ==
LOC: EC 11:45 → 3SCARD 13:22
PROVIDERS: ADMIT Internal Medicine; ATTEND Internal Medicine
DX: E10.10 Type 1 diabetes mellitus with ketoacidosis without coma (principal); Z79.4 Long term (current) use of insulin; F17.200 Nicotine dependence, unspecified, uncomplicated; Z71.6 Tobacco abuse counseling; Z90.89 Acquired absence of other organs; Z86.69 Personal history of other diseases of the nervous system and sense organs; Z86.59 Personal history of other mental and behavioral disorders; Z98.890 Other specified postprocedural states
CPT/HCPCS: 36415; 80048; 80051; 80053; 80306; 81003; 82009; 82565; 82947; 83735; 84100; 84520; 85025; 96361; 96365; 96375; 99291

== ENCOUNTER → 2022-12-29 | Outpatient (CLI) | payer BC ==
--- NOTE | 2022-12-31 23:22 | US ---
EXAMINATION TYPE: US gallbladder DATE OF EXAM: 12/29/2022 COMPARISON: NONE CLINICAL INDICATION: Male, 22 years old with history of R74.8 ABNORMAL LEVELS OF OTHER SERUM ENZYMES; abdominal pain, elevated liver enzymes TECHNIQUE: Multiple sonographic images of the right upper quadrant are obtained. FINDINGS: EXAM MEASUREMENTS: Liver Length: 17.2 cm Gallbladder Wall: 0.2 cm CBD: 0.2 cm Right Kidney: 7.7 x 3.2 x 2.8 cm Pancreas: The pancreatic tail and some of the pancreatic body are secured by bowel gas shadowing. Liver: appears wnl Gallbladder: no evidence of stones. No abnormal distention, wall thickening, or pericholecystic flui d. Evidence for sonographic Nails's sign: no CBD: wnl Right Kidney: Small in size. There is a 1.1 cm cortical cyst at the upper mid pole. Mild pelvicaliec tasis may be transient. IMPRESSION: 1. Small size to the right kidney. Query any underlying chronic kidney disease. There is also mild pe lvocaliectasis which is probably transient. Consider short interval follow-up to exclude early hydron ephrosis. Assess the left kidney at that time. 2. No gallstones or biliary ductal dilatation. 3. Borderline hepatomegaly at 17.2 cm but with otherwise normal sonographic appearance.
== END | disposition home or self-care (01) ==
LOC: RADUSWWP 16:35
PROVIDERS: ATTEND Internal Medicine
DX: N28.89 Other specified disorders of kidney and ureter (principal); R74.8 Abnormal levels of other serum enzymes
CPT/HCPCS: 76705

== ENCOUNTER 2024-05-19 17:23 | Observation (INO) | payer BC ==
[2024-05-19 17:36] LABS: Glucose,Whole Blood 305 mg/dL (70-110)
--- NOTE | 2024-05-19 19:02 | ED ---
Recheck HPI - General Chief Complaint: Recheck/Abnormal Lab/Rx Stated Complaint: Diabetic issue Time Seen by Provider: 05/19/24 19:01 Source: patient, RN notes reviewed Mode of arrival: ambulatory Limitations: no limitations - History of Present Illness Initial Comments: 23 year old male presented to the ER with a chief complaint of medication refill. Patient is a known type I diabetic and takes insulin daily. He states he takes Humalog and is instructed by PCP to take 12 units daily. Patient is on a sliding scale. Patient states due to financial issues he is unable to obtain insulin until 05-21-2024. Patient's last dose was this morning around 9 AM. Patient denies any fever, cough, congestion, chest pain, shortness of breath, abdominal pain, constipation/diarrhea, urinary complaints or peripheral edema. - Related Data Home Medications Medication Instructions Recorded Confirmed Insulin Glargine,Hum.rec.anlog 45 unit SQ HS 05/19/24 05/19/24 [Lantus Solostar Pen] Insulin Lispro [humaLOG Kwikpen] 12 unit SQ AC-TID 05/19/24 05/19/24 Insulin Lispro [humaLOG Kwikpen] See Protocol SQ AC-TID 05/19/24 05/19/24 Allergies Allergy/AdvReac Type Severity Reaction Status Date / Time No Known Allergies Allergy Verified 05/19/24 19:27 Review of Systems ROS Statement: Those systems with pertinent positive or pertinent negative responses have been documented in the HPI. ROS Other: All systems not noted in ROS Statement are negative. Past Medical History Past Medical History: Diabetes Mellitus History of Any Multi-Drug Resistant Organisms: None Reported Past Surgical History: Ear Surgery, Tonsillectomy Past Psychological History: Anxiety, Depression Smoking Status: Current every day smoker Past Alcohol Use History: Occasional Past Drug Use History: Marijuana General Exam Limitations: no limitations General appearance: alert, in no apparent distress Respiratory exam: Present: normal lung sounds bilaterally. Absent: respiratory distress, wheezes, rales, rhonchi, stridor Cardiovascular Exam: Present: regular rate, normal rhythm, normal heart sounds. Absent: systolic murmur, diastolic murmur, rubs, gallop, clicks Neurological exam: Present: alert, oriented X3, CN II-XII intact Skin exam: Present: warm, dry, intact, normal color. Absent: rash Course Vital Signs 05/19/24 05/19/24 17:30 19:26 Temperature 97.8 F Pulse Rate 90 90 Respiratory 18 18 Rate Blood Pressure 124/78 115/73 O2 Sat by Pulse 100 100 Oximetry - Reevaluation(s) Reevaluation #1: 05/19/24 20:52 Case discussed with [place] physician, Dr. Lee, for admission. Medical Decision Making - Medical Decision Making Was pt. sent in by a medical professional or institution (, [facility], BOX CAR LOADER, urgent care, hospital, or senior living...) When possible be specific @ -No Did you speak to anyone other than the patient for history (EMS, parent, family, police, friend...)? What history was obtained from this source @ -No Did you review nursing and triage notes (agree or disagree)? Why? @ -I reviewed and agree with nursing and triage notes Were old charts reviewed (outside hosp., previous admission, EMS record, old EKG, old radiological studies, urgent care reports/EKG's, senior living records)? Report findings @ -No old charts were reviewed Differential Diagnosis (chest pain, altered mental status, abdominal pain women, abdominal pain men, vaginal bleeding, weakness, fever, dyspnea, syncope, headache, dizziness, GI bleed, back pain, seizure, CVA, palpatations, mental health, musculoskeletal)? @ -Hyperglycemia, DKA, HHS, electrolyte abnormality This list is not meant to be all-inclusive EKG interpreted by me (3pts min.). @ -As above X-rays interpreted by me (1pt min.). @ -None done CT interpreted by me (1pt min.). @ -None done U/S interpreted by me (1pt. min.). @ -None done What testing was considered but not performed or refused? (CT, X-rays, U/S, labs)? Why? @ -None What meds were considered but not given or refused? Why? @ -None Did you discuss the management of the patient with other professionals (professionals i.e. [facility] Denis, BOX CAR LOADER, lab, RT, psych nurse, social media job titles, machine deicer element winder, teacher, bank secrecy act officer, case management coordinator)? Give summary @ -Yes, case discussed with [place] physician, Dr. Lee for admission. Was smoking cessation discussed for >3mins.? @ -No Was critical care preformed (if so, how long)? @ -No Were there social determinants of health that impacted care today? How? (Homelessness, low income, unemployed, alcoholism, drug addiction, transport ation, low edu. Level, literacy, decrease access to med. care, detention, rehab)? @ -Patient is unable to afford insulin Was there de-escalation of care discussed even if they declined (Discuss DNR or withdrawal of care, Hospice)? DNR status @ -No What co-morbidities impacted this encounter? (DM, HTN, Smoking, COPD, CAD, Cancer, CVA, ARF, Chemo, Hep., AIDS, mental health diagnosis, sleep apnea, morbi d obesity)? @ -Type 1 diabetes Was patient admitted / discharged? Hospital course, mention meds given and route, prescriptions, significant lab abnormalities, going to OR and other pertinent info. @ -Admitted. 23-year-old male presented to ER with a chief complaint of insulin refill. Patient's last dose around 9 AM. Patient is unable to afford insulin refill until Sunday. He has no acute complaints. History and physical exam completed. Vitals with normal limits. Patient in no signs of acute distress and nontoxic-appearing. CBC unremarkable. Sodium 135, potassium 4.2, chloride 97, carbon dioxide 20. Acetone positive. Ketonuria 3+. Serum glucose 241. Venous blood gas pH 7.36, pCO2 40, bicarb 22. Admission considered for DKA. Admission discussed with sound physician, Dr. Lee who accepts admission. DKA protocol was initiated. Patient did receive 2 L IV fluid in the ER prior to admission. Upon reevaluation, patient resting comfortably on stretcher no signs acute distress. Patient agreeable for admission. Patient made in stable condition for further evaluation and treatment. Case discussed with ED attending, Dr. Felix. Undiagnosed new problem with uncertain prognosis? @ -No Drug Therapy requiring intensive monitoring for toxicity (Heparin, Nitro, Insul in, Cardizem)? @ -No Were any procedures done? @ -No Diagnosis/symptom? @ -Diabetic ketoacidosis Acute, or Chronic, or Acute on Chronic? @ -Acute Uncomplicated (without systemic symptoms) or Complicated (systemic symptoms)? @ -Complicated Side effects of treatment? @ -No Exacerbation, Progression, or Severe Exacerbation? @ -No Poses a threat to life or bodily function? How? (Chest pain, USA, MS, pneumonia, PE, COPD, DKA, ARF, appy, cholecystitis, CVA, Diverticulitis, Homicidal, Suicidal, threat to staff... and all critical care pts) @ -Yes, DKA is life-threatening. - Lab Data Result diagrams: 05/19/24 18:57 05/19/24 18:57 Lab Results 05/19/24 05/19/24 05/19/24 Range/Units 17:35 18:57 18:57 WBC 8.6 (3.8-10.6) k/uL RBC 4.67 (4.30-5.90) m/uL Hgb 14.4 (13.0-17.5) gm/dL Hct 44.4 (39.0-53.0) % MCV 95.1 (80.0-100.0) fL MCH 30.9 (25.0-35.0) pg MCHC 32.5 (31.0-37.0) g/dL RDW 12.1 (11.5-15.5) % Plt Count 347 (150-450) k/uL MPV 7.7 Neutrophils % 57 % Lymphocytes % 34 % Monocytes % 4 % Eosinophils % 2 % Basophils % 1 % Neutrophils # 4.9 (1.3-7.7) k/uL Lymphocytes # 2.9 (1.0-4.8) k/uL Monocytes # 0.4 (0-1.0) k/uL Eosinophils # 0.2 (0-0.7) k/uL Basophils # 0.1 (0-0.2) k/uL VBG pH (7.31-7.41) VBG pCO2 (37-51) mmHg VBG HCO3 (24-28) mmol/L Sodium (137-145) mmol/L Potassium (3.5-5.1) mmol/L Chloride (98-107) mmol/L Carbon Dioxide (22-30) mmol/L Anion Gap mmol/L BUN (9-20) mg/dL Creatinine (0.66-1.25) mg/dL Est GFR (CKD-EPI)AfAm (>60 ml/min/1.73 sqM) Est GFR (CKD-EPI)NonAf (>60 ml/min/1.73 sqM) Glucose (74-99) mg/dL POC Glucose (mg/dL) 305 H (70-110) mg/dL POC Glu Type Cutter ID December Calcium (8.4-10.2) mg/dL Magnesium (1.6-2.3) mg/dL Total Bilirubin (0.2-1.3) mg/dL AST (17-59) U/L ALT (4-49) U/L Alkaline Phosphatase (38-126) U/L Total Protein (6.3-8.2) g/dL Albumin (3.5-5.0) g/dL Urine Color Colorless Urine Appearance Clear (Clear) Urine pH 5.5 (5.0-8.0) Ur Specific [place] 1.031 (1.001-1.035) Urine Protein Negative (Negative) Urine Glucose (UA) 4+ H (Negative) Urine Ketones 3+ H (Negative) Urine Blood Negative (Negative) Urine Nitrite Negative (Negative) Urine Bilirubin Negative (Negative) Urine Urobilinogen <2.0 (<2.0) mg/dL Ur Leukocyte Esterase Negative (Negative) Acetone, Qual (Negative) 05/19/24 05/19/24 05/19/24 Range/Units 18:57 20:40 21:04 WBC (3.8-10.6) k/uL RBC (4.30-5.90) m/uL Hgb (13.0-17.5) gm/dL Hct (39.0-53.0) % MCV (80.0-100.0) fL MCH (25.0-35.0) pg MCHC (31.0-37.0) g/dL RDW (11.5-15.5) % Plt Count (150-450) k/uL MPV Neutrophils % % Lymphocytes % % Monocytes % % Eosinophils % % Basophils % % Neutrophils # (1.3-7.7) k/uL Lymphocytes # (1.0-4.8) k/uL Monocytes # (0-1.0) k/uL Eosinophils # (0-0.7) k/uL Basophils # (0-0.2) k/uL VBG pH (7.31-7.41) VBG pCO2 (37-51) mmHg VBG HCO3 (24-28) mmol/L Sodium 135 L (137-145) mmol/L Potassium 4.2 (3.5-5.1) mmol/L Chloride 97 L (98-107) mmol/L Carbon Dioxide 20 L (22-30) mmol/L Anion Gap 18 mmol/L BUN 20 (9-20) mg/dL Creatinine 0.58 L (0.66-1.25) mg/dL Est GFR (CKD-EPI)AfAm >90 (>60 ml/min/1.73 sqM) Est GFR (CKD-EPI)NonAf >90 (>60 ml/min/1.73 sqM) Glucose 241 H (74-99) mg/dL POC Glucose (mg/dL) 173 H (70-110) mg/dL POC Glu Type Cutter ID Haleigh Solorio Calcium 9.8 (8.4-10.2) mg/dL Magnesium 1.6 (1.6-2.3) mg/dL Total Bilirubin 0.8 (0.2-1.3) mg/dL AST 28 (17-59) U/L ALT 24 (4-49) U/L Alkaline Phosphatase 105 (38-126) U/L Total Protein 7.0 (6.3-8.2) g/dL Albumin 4.6 (3.5-5.0) g/dL Urine Color Urine Appearance (Clear) Urine pH (5.0-8.0) Ur Specific [place] (1.001-1.035) Urine Protein (Negative) Urine Glucose (UA) (Negative) Urine Ketones (Negative) Urine Blood (Negative) Urine Nitrite (Negative) Urine Bilirubin (Negative) Urine Urobilinogen (<2.0) mg/dL Ur Leukocyte Esterase (Negative) Acetone, Qual Positive (Negative) 05/19/24 05/19/24 Range/Units 21:04 21:39 WBC (3.8-10.6) k/uL RBC (4.30-5.90) m/uL Hgb (13.0-17.5) gm/dL Hct (39.0-53.0) % MCV (80.0-100.0) fL MCH (25.0-35.0) pg MCHC (31.0-37.0) g/dL RDW (11.5-15.5) % Plt Count (150-450) k/uL MPV Neutrophils % % Lymphocytes % % Monocytes % % Eosinophils % % Basophils % % Neutrophils # (1.3-7.7) k/uL Lymphocytes # (1.0-4.8) k/uL Monocytes # (0-1.0) k/uL Eosinophils # (0-0.7) k/uL Basophils # (0-0.2) k/uL VBG pH 7.36 (7.31-7.41) VBG pCO2 40 (37-51) mmHg VBG HCO3 22 L (24-28) mmol/L Sodium (137-145) mmol/L Potassium (3.5-5.1) mmol/L Chloride (98-107) mmol/L Carbon Dioxide (22-30) mmol/L Anion Gap mmol/L BUN (9-20) mg/dL Creatinine (0.66-1.25) mg/dL Est GFR (CKD-EPI)AfAm (>60 ml/min/1.73 sqM) Est GFR (CKD-EPI)NonAf (>60 ml/min/1.73 sqM) Glucose (74-99) mg/dL POC Glucose (mg/dL) 153 H (70-110) mg/dL POC Glu Type Cutter [place] Evan Norman Calcium (8.4-10.2) mg/dL Magnesium (1.6-2.3) mg/dL Total Bilirubin (0.2-1.3) mg/dL AST (17-59) U/L ALT (4-49) U/L Alkaline Phosphatase (38-126) U/L Total Protein (6.3-8.2) g/dL Albumin (3.5-5.0) g/dL Urine Color Urine Appearance (Clear) Urine pH (5.0-8.0) Ur Specific [place] (1.001-1.035) Urine Protein (Negative) Urine Glucose (UA) (Negative) Urine Ketones (Negative) Urine Blood (Negative) Urine Nitrite (Negative) Urine Bilirubin (Negative) Urine Urobilinogen (<2.0) mg/dL Ur Leukocyte Esterase (Negative) Acetone, Qual (Negative) - EKG Data -: EKG Interpreted by Me EKG Comments: EKG taken at 20: 59 showing a normal sinus rhythm. No ST elevation or depression. T wave inversion in V1 and V2. Normal axis. Ventricular rate 72, AR interval 143, QRS duration 84, QT/QTc 371/395. Disposition Clinical Impression: DKA (diabetic ketoacidoses) Disposition: ADMITTED IP TO THIS HOSP Condition: Stable Time of Disposition: 20:30
[2024-05-19] MEDS: INSULIN ASPART (NovoLOG) 100 UNIT/ML VIAL SQ ONE (19:05)
[2024-05-19 19:21] LABS: Basophils # (A) 0.1 k/uL (0-0.2); Basophils % (A) 1 %; Eosinophils # (A) 0.2 k/uL (0-0.7); Eosinophils % (A) 2 %; HCT 44.4 % (39.0-53.0); HGB 14.4 gm/dL (13.0-17.5); Lymphocytes # (A) 2.9 k/uL (1.0-4.8); Lymphocytes % (A) 34 %; MCH 30.9 pg (25.0-35.0); MCHC 32.5 g/dL (31.0-37.0); MCV 95.1 fL (80.0-100.0); Mean Platelet Volume 7.7; Monocytes # (A) 0.4 k/uL (0-1.0); Monocytes % (A) 4 %; Neutrophils # (A) 4.9 k/uL (1.3-7.7); Neutrophils % (A) 57 %; Platelet Count 347 k/uL (150-450); RBC 4.67 m/uL (4.30-5.90); RDW 12.1 % (11.5-15.5); WBC 8.6 k/uL (3.8-10.6)
[2024-05-19 19:30] LABS: Appearance,Urine Clear (Clear); Bilirubin,Urine Negative (Negative); Blood,Urine Negative (Negative); Color,Urine Colorless; Glucose,Urine (UA) 4+ (Negative); Leukocyte Esterase,Urine Negative (Negative); Nitrite,Urine Negative (Negative); PH, Urine 5.5 (5.0-8.0); Protein,Urine Negative (Negative); Specific Gravity,Urine 1.031 (1.001-1.035); Urobilinogen,Urine <2.0 mg/dL (<2.0)
[2024-05-19 19:31] LABS: ALT 24 U/L (4-49); African American GFR (CKD) >90 (>60 ml/min/1.73 sqM); Albumin 4.6 g/dL (3.5-5.0); Anion Gap 18 mmol/L; Blood Urea Nitrogen 20 mg/dL (9-20); Calcium 9.8 mg/dL (8.4-10.2); Carbon Dioxide 20 mmol/L (22-30); Chloride 97 mmol/L (98-107); Glucose 241 mg/dL (74-99); Non-African American GFR(CKD) >90 (>60 ml/min/1.73 sqM); Sodium 135 mmol/L (137-145); Total Bilirubin 0.8 mg/dL (0.2-1.3)
[2024-05-19 19:33] LABS: AST 28 U/L (17-59); Alkaline Phosphatase 105 U/L (38-126); Potassium 4.2 mmol/L (3.5-5.1)
[2024-05-19 19:35] LABS: Ketones,Urine 3+ (Negative)
[2024-05-19] MEDS: SODIUM CHLORIDE 0.9% 1,000 ML IV STA ×2 (19:45→20:36)
[2024-05-19] MEDS ORDERED: Potassium Replacement Protocol 1 EACH MISC MISCELLANE PRN (20:16)
[2024-05-19] MEDS ORDERED: DEXTROSE 50% SYRINGE 50 ML IVP PRN ×2 (20:16)
[2024-05-19] MEDS ORDERED: Magnesium Replacement Protocol 1 EACH MISC MISCELLANE PRN (20:16)
[2024-05-19 20:41] LABS: Glucose,Whole Blood 173 mg/dL (70-110)
[2024-05-19] MEDS: SODIUM CHLORIDE 0.9% 1,000 ML IV SCH (20:41)
[2024-05-19] MEDS ORDERED: NALOXONE 0.4 MG/ML 1 ML VIAL IV PRN (20:51)
[2024-05-19] MEDS ORDERED: ONDANSETRON 4 MG/2 ML VIAL IVP PRN (20:51)
[2024-05-19] MEDS ORDERED: ACETAMINOPHEN TAB 325 MG TAB PO PRN (20:51)
[2024-05-19] MEDS: D5-0.45% NACL WITH KCL 20MEQ/L 1,000 ML IV SCH (20:57)
[2024-05-19] MEDS: INSULIN REGULAR 100 UNIT in SODIUM CHLORIDE 0.9% 100 ML IV SCH (21:03)
[2024-05-19 21:13] LABS: VBG PH 7.36 (7.31-7.41)
[2024-05-19 21:40] LABS: Glucose,Whole Blood 153 mg/dL (70-110)
[2024-05-19 22:34] LABS: Glucose,Whole Blood 111 mg/dL (70-110)
[2024-05-19 23:37] LABS: Glucose,Whole Blood 85 mg/dL (70-110)
--- NOTE | 2024-05-19 23:50 | P.HPIM ---
History of Present Illness H&P Date: 05/19/24 Chief Complaint: Insulin refill needed 24-year-old 21-year-old male with diabetes mellitus Patient coming in seeking help with refilling on insulin he has run out since yesterday morning was unable to get a refill due to high co-pay on his insurance he takes Lantus 35 units nightly and 12 units of short acting insulin 3 times a day with meals He denies any confusion headache dizziness lightheadedness changes in vision or hearing denies any chest pain trouble breathing nausea vomiting abdominal pain changes in bowel or urinary habits denies any abdominal pain GI bleeding. In the ED patient was found to be in DKA Patient admits to vaping denies any illicit drugs or heavy alcohol she denies tobacco smoking, she claims that she quit meth 3 months ago , and alcohol 1 year. review of systems Pertinent positives as noted in HPI. All other systems were reviewed and are negative on exam Constitutional: No acute distress, conversant, pleasant Eyes: Anicteric sclerae, moist conjunctiva, Pupils equal round reactive to light ENMT: NC/AT Oropharynx clear, no erythema, or exudates Neck: Supple, no masses, or JVD No carotid bruits No thyromegaly Lungs: Clear to auscultation Clear to percussion Normal respiratory effort, no accessory muscle use Cardiovascular: Heart regular in rate and rhythm, No murmurs, gallops, or rubs No peripheral edema Abdominal: Soft Nontender, no guarding, rebound or rigidity Abdomen moving with respiration Normoactive bowel sounds Extremities: No digital cyanosis No clubbing Pedal pulses intact and symmetrical Radial pulses intact and symmetrical No calf tenderness Psychiatric: Alert and oriented to person, place and time Appropriate affect fair judgement Neuro Muscles Strength 5/5 in all 4 extremities Sensation to light touch grossly present throughout Cranial nerves II-XII grossly intact Past Medical History Past Medical History: Diabetes Mellitus History of Any Multi-Drug Resistant Organisms: None Reported Past Surgical History: Ear Surgery, Tonsillectomy Past Psychological History: Anxiety, Depression Smoking Status: Current every day smoker Past Alcohol Use History: Occasional Past Drug Use History: Marijuana Medications and Allergies Home Medications Medication Instructions Recorded Confirmed Type Insulin Glargine,Hum.rec.anlog 45 unit SQ HS 05/19/24 05/19/24 History [Lantus Solostar Pen] Insulin Lispro [humaLOG Kwikpen] 12 unit SQ AC-TID 05/19/24 05/19/24 History Insulin Lispro [humaLOG Kwikpen] See Protocol SQ AC-TID 05/19/24 05/19/24 History Allergies Allergy/AdvReac Type Severity Reaction Status Date / Time No Known Allergies Allergy Verified 05/19/24 19:27 Physical Exam Vitals: Vital Signs Temp Pulse Resp BP Pulse Ox 05/19/24 19:26 90 18 115/73 100 05/19/24 17:30 97.8 F 90 18 124/78 100 Intake and Output 05/19/24 05/19/24 05/19/24 06:59 14:59 22:59 Other: Weight 54.431 kg Results CBC & Chem 7: 05/19/24 18:57 05/19/24 18:57 Labs: Abnormal Lab Results - Last 24 Hours (Table) 05/19/24 05/19/24 05/19/24 Range/Units 17:35 18:57 18:57 Sodium 135 L (137-145) mmol/L Chloride 97 L (98-107) mmol/L Carbon Dioxide 20 L (22-30) mmol/L Creatinine 0.58 L (0.66-1.25) mg/dL Glucose 241 H (74-99) mg/dL POC Glucose (mg/dL) 305 H (70-110) mg/dL Urine Glucose (UA) 4+ H (Negative) Urine Ketones 3+ H (Negative) 05/19/24 Range/Units 20:40 Sodium (137-145) mmol/L Chloride (98-107) mmol/L Carbon Dioxide (22-30) mmol/L Creatinine (0.66-1.25) mg/dL Glucose (74-99) mg/dL POC Glucose (mg/dL) 173 H (70-110) mg/dL Urine Glucose (UA) (Negative) Urine Ketones (Negative) Assessment and Plan Assessment: 23-year-old male with diabetes mellitus insulin-dependent ran out of his insulin came in for insulin refill found to be in DKA I discussed case with ED doctor and accepted the admission for DKA secondary to noncompliance with anticipated length of stay more than 2 midnights DKA secondary to noncompliance Diabetes mellitus type 1 insulin-dependent Blood sugars 241 elevated Anion gap elevated 18, bicarb is 20 unremarkable Ketones positive in urine, acetone positive White count unremarkable 8.6 hemoglobin 14.4 unremarkable Renal function unremarkable potassium 4.2 sodium 135 BUN 20 creatinine 0.5 Currently on insulin drip for DKA protocol Monitor electrolytes every 4 hours Once anion gap closed we will transition to subcu insulin N.p.o. Full code DVT prophylaxis Lovenox 40 mg subcu daily
[2024-05-20 00:07] LABS: Glucose,Whole Blood 104 mg/dL (70-110)
[2024-05-20 00:18] LABS: African American GFR (CKD) >90 (>60 ml/min/1.73 sqM); Anion Gap 4 mmol/L; Blood Urea Nitrogen 13 mg/dL (9-20); Carbon Dioxide 25 mmol/L (22-30); Chloride 104 mmol/L (98-107); Glucose 96 mg/dL (74-99); Non-African American GFR(CKD) >90 (>60 ml/min/1.73 sqM); Potassium 3.1 mmol/L (3.5-5.1); Sodium 133 mmol/L (137-145)
[2024-05-20] MEDS: LORATADINE 10 MG TAB PO SCH (00:44)
[2024-05-20] MEDS: INSULIN DETEMIR (LEVEMIR) 100 UNIT/ML SYR SQ ONE (00:45)
[2024-05-20 04:49] LABS: African American GFR (CKD) >90 (>60 ml/min/1.73 sqM); Anion Gap 7 mmol/L; Blood Urea Nitrogen 11 mg/dL (9-20); Carbon Dioxide 25 mmol/L (22-30); Chloride 104 mmol/L (98-107); Glucose 100 mg/dL (74-99); Non-African American GFR(CKD) >90 (>60 ml/min/1.73 sqM); Potassium 3.5 mmol/L (3.5-5.1); Sodium 136 mmol/L (137-145)
[2024-05-20 06:15] LABS: Glucose,Whole Blood 170 mg/dL (70-110)
[2024-05-20] MEDS: INSULIN ASPART (NovoLOG) 100 UNIT/ML VIAL SQ SCH (06:17)
[2024-05-20] MEDS: POTASSIUM CHLORIDE ER 20 MEQ TAB.ER PO STA (06:17)
[2024-05-20] MEDS: ENOXAPARIN 40 MG/0.4 ML SYRINGE SQ SCH (08:33)
[2024-05-20 08:37] VITALS: BP 105/70; PULSE 86; RESP 14; TEMP 98
--- NOTE | 2024-05-20 10:20 | P.DS ---
Providers Date of admission: 05/19/24 22:32 Attending physician: Hamzah Lee MD Primary care [facility] Course: Discharge Diagnosis: DKA secondary to noncompliance Type 1 diabetes mellitus Hospital Course: Patient is a 24-year-old male with diabetes mellitus who came into the ED so that he could get refills on his insulin. Patient states that he was unable to get it due to high co-pay. In the ED patient was found to be in DKA. Patient was started on the DKA protocol. Once his anion gap closed he was transition to subcu insulin. Patient was seen in the morning and was doing well. Patient states that he spoke with his brother who will help him out financially so that he can refill his insulin. I did send refill prescription to patient's pharmacy.. Patient seen and examined at bedside.[] Vital signs reviewed and stable. General: [non toxic], [no distress], [appears at stated age] Derm: [warm], [dry] Head: [atraumatic], [normocephalic], [symmetric] Eyes: [EOMI], [no lid lag], [anicteric sclera] Mouth: [no lip lesion], [mucus membranes moist] Cardiovascular: [S1S2 reg], [no murmur], [positive posterior tibial pulse bilateral], Lungs: [CTA bilateral], [no rhonchi, no rales] , [no accessory muscle use] Abdominal: [soft], [ nontender to palpation], [no guarding], [no appreciable organomegaly] Ext: [no gross muscle atrophy], [no edema], [no contractures] Neuro: [ CN II-XI grossly intact], [no focal neuro deficits] Psych: [Alert], [oriented], [appropriate affect] A total of [33] minutes of time were spent preparing this complex discharge summary . Patient Condition at Discharge: Stable Plan - Discharge Summary New Discharge Prescriptions: New Insulin Glargine,Hum.rec.anlog [Lantus Solostar Pen] 35 units SQ HS 30 Days #10 ml Continue Insulin Lispro [humaLOG Kwikpen] See Protocol SQ AC-TID Insulin Lispro [humaLOG Kwikpen] 12 unit SQ AC-TID 30 Days #100 ml Discontinued Insulin Glargine,Hum.rec.anlog [Lantus Solostar Pen] 45 unit SQ HS Discharge Medication List Insulin Lispro [humaLOG Kwikpen] See Protocol SQ AC-TID 05/19/24 [History] Insulin Glargine,Hum.rec.anlog [Lantus Solostar Pen] 35 units SQ HS 30 Days #10 ml 05/20/24 [Rx] Insulin Lispro [humaLOG Kwikpen] 12 unit SQ AC-TID 30 Days #100 ml 05/20/24 [Rx] Follow up Appointment(s)/Referral(s): Juan Garnett DO [Primary Care Provider] - 1-2 days Discharge Disposition: HOME SELF-CARE
[2024-05-20 11:33] LABS: Glucose,Whole Blood 159 mg/dL (70-110)
[2024-05-20 13:53] VITALS: BMI 22.2
== END 2024-05-20 15:24 | disposition home or self-care (01) ==
LOC: EC 17:23 → INTOOBSV 22:32 → 3SCARD 22:32
PROVIDERS: ADMIT Internal Medicine; ATTEND Internal Medicine
DX: E10.10 Type 1 diabetes mellitus with ketoacidosis without coma (principal); F32.A Depression, unspecified; F41.9 Anxiety disorder, unspecified; F17.200 Nicotine dependence, unspecified, uncomplicated; Z79.4 Long term (current) use of insulin; Z91.141 Patient's other noncompliance with medication regimen due to financial hardship
CPT/HCPCS: 36415; 80051; 80053; 81003; 82009; 82565; 82803; 82947; 83735; 84100; 84520; 85025; 93005; 96372; 99285

== ENCOUNTER 2024-11-06 06:07 | Inpatient (IN) | payer BC, OTHER ==
[2024-11-06] MEDS: ONDANSETRON 4 MG/2 ML VIAL IVP STA (06:40)
[2024-11-06] MEDS: SODIUM CHLORIDE 0.9% 2,000 ML IV STA (06:41)
[2024-11-06] MEDS: METOCLOPRAMIDE 5 MG/ML 2 ML VIAL IVP STA (06:53)
[2024-11-06 07:02] LABS: Basophils # (A) 0.1 k/uL (0-0.2); Basophils % (A) 0 %; Eosinophils # (A) 0.1 k/uL (0-0.7); Eosinophils % (A) 0 %; HCT 51.1 % (39.0-53.0); HGB 15.3 gm/dL (13.0-17.5); Hypochromasia Marked; Lymphocytes % (A) 16 %; MCH 30.3 pg (25.0-35.0); MCHC 29.9 g/dL (31.0-37.0); MCV 101.5 fL (80.0-100.0); Monocytes # (A) 0.8 k/uL (0-1.0); Monocytes % (A) 5 %; Neutrophils # (A) 13.9 k/uL (1.3-7.7); Neutrophils % (A) 77 %; Platelet Count 517 k/uL (150-450); RBC 5.04 m/uL (4.30-5.90); RDW 12.3 % (11.5-15.5)
--- NOTE | 2024-11-06 07:03 | ED ---
Recheck HPI - General Chief Complaint: Recheck/Abnormal Lab/Rx Stated Complaint: diabetic issues Time Seen by Provider: 11/06/24 06:15 Source: patient, RN notes reviewed Mode of arrival: EMS Limitations: no limitations - History of Present Illness Initial Comments: This is a 23-year-old male who presents to the emergency department for hyperglycemia. Patient is a type I diabetic and has been without his long- acting insulin, Lantus, for the last 2 days. States that he has been unable to get it filled. Unsure what his blood sugar has been running, but states that he started to feel very shaky and nauseous and feels like he is going into DKA again. The last time he went into DKA was in May 2024. - Related Data Home Medications Medication Instructions Recorded Confirmed Insulin Lispro [humaLOG Kwikpen] See Protocol SQ AC-TID 05/19/24 11/06/24 Insulin Glargine,Hum.rec.anlog 40 units SQ HS 11/06/24 11/06/24 [Lantus Solostar Pen] Insulin Lispro [humaLOG Kwikpen] 12 unit SQ AC-TID 11/06/24 11/06/24 Allergies Allergy/AdvReac Type Severity Reaction Status Date / Time No Known Allergies Allergy Verified 11/06/24 09:34 Review of Systems ROS Statement: Those systems with pertinent positive or pertinent negative responses have been documented in the HPI. ROS Other: All systems not noted in ROS Statement are negative. Past Medical History Past Medical History: Diabetes Mellitus History of Any Multi-Drug Resistant Organisms: None Reported Past Surgical History: Ear Surgery, Tonsillectomy Past Anesthesia/Blood Transfusion Reactions: No Reported Reaction Past Psychological History: Anxiety, Depression Smoking Status: Vaper Past Alcohol Use History: Occasional Past Drug Use History: Marijuana General Exam Limitations: no limitations General appearance: alert, in distress Head exam: Present: atraumatic, normocephalic, normal inspection Respiratory exam: Absent: wheezes, rales, rhonchi Cardiovascular Exam: Present: normal rhythm, tachycardia GI/Abdominal exam: Present: soft, normal bowel sounds. Absent: distended, tenderness, guarding, rebound, rigid Neurological exam: Present: alert, oriented X3, CN II-XII intact Psychiatric exam: Present: normal affect, normal mood Skin exam: Present: warm, dry, intact, normal color. Absent: rash Course Vital Signs 11/06/24 11/06/24 11/06/24 06:10 09:21 11:41 Temperature 98.0 F Pulse Rate 121 H 135 H 135 H Respiratory 22 28 H 24 Rate Blood Pressure 138/65 143/86 137/87 O2 Sat by Pulse 100 98 100 Oximetry 11/06/24 12:14 Temperature 98.4 F Pulse Rate 134 H Respiratory 24 Rate Blood Pressure 126/86 O2 Sat by Pulse 100 Oximetry Medical Decision Making - Medical Decision Making This is a 23-year-old male who presents to the emergency department for hyperglycemia. Was pt. sent in by a medical professional or institution? @ -No Did you speak to anyone other than the patient for history? @ -No Did you review nursing and triage notes? @ -Yes, and I agree, it is accurate with regards to the patient's symptoms. Were old charts reviewed? @ -No Differential Diagnosis? @ -DKA, HHS, medication error, dietary intake, this is not meant to be an all- inclusive list. EKG interpreted by me (3pts min.)? @ -EKG interpreted by me demonstrating the following: Sinus tachycardia. Ventricular rate 124 bpm, NJ interval 112 ms, QRS duration 78 ms, QTc 480 ms. X-rays interpreted by me (1pt min.)? @ -Not obtained CT interpreted by me (1pt min.)? @ -Not obtained U/S interpreted by me (1pt. min.)? @ -Not obtained What testing was considered but not performed? (CT, X-rays, U/S, labs)? Why? @ -None What meds were considered but not given? Why? @ -None Did you discuss the management of the patient with other professionals? @ -Yes, Dr. Mayo, who accepts the patient for admission Did you reconcile home meds? @ -No Was smoking cessation discussed for >3mins.? @ -No Was critical care preformed (if so, how long)? @ -Yes, >35 minutes Were there social determinants of health that impacted care today? How? (Homelessness, low income, unemployed, alcoholism, drug addiction, transportation, low edu. Level, literacy, decrease access to med. care, half-way, rehab)? @ -No Was there de-escalation of care discussed even if they declined? (Discuss DNR or withdrawal of care, Hospice)? @ -No What co-morbidities impacted this encounter? (DM, HTN, Smoking, COPD, CAD, Cancer, CVA, Hep., AIDS, mental health diagnosis, sleep apnea, morbid obesity)? @ -DM Was patient admitted / discharged? @ -Admitted. Lab work obtained and found to be consistent with DKA. Patient has a blood sugar of 549, bicarb of less than 5, and anion gap is unable to be calculated. Acetone positive. VBG with a pH of 7.06 and bicarb of 6. He was given 2 L of IV fluids immediately on arrival and when lab work returned he was started on the DKA protocol. We did repeat his BMP at the 1 hour donal to determine if he needs to go to the ICU or not. After being given fluids and started on the DKA protocol, his BMP was essentially unchanged and he was admitted to the ICU for further management of DKA. Case discussed with ED attending Dr. Sutton. Undiagnosed new problem with uncertain prognosis? @ -None Drug Therapy requiring intensive monitoring for toxicity (Heparin, Nitro, Insulin, Cardizem)? @ -Insulin Were any procedures done? @ -None Diagnosis/symptom? @ -DKA Acute, or Chronic, or Acute on Chronic? @ -Acute Uncomplicated (without systemic symptoms) or Complicated (systemic symptoms)? @ -Complicated Side effects of treatment? @ -None Exacerbation, Progression, or Severe Exacerbation] @ -Not applicable Poses a threat to life or bodily function? @ -Yes, can lead to - Lab Data Result diagrams: 11/06/24 06:25 11/06/24 08:30 Lab Results 11/06/24 11/06/24 11/06/24 Range/Units 06:10 06:25 06:25 WBC 18.0 H (3.8-10.6) k/uL RBC 5.04 (4.30-5.90) m/uL Hgb 15.3 (13.0-17.5) gm/dL Hct 51.1 (39.0-53.0) % MCV 101.5 H (80.0-100.0) fL MCH 30.3 (25.0-35.0) pg MCHC 29.9 L (31.0-37.0) g/dL RDW 12.3 (11.5-15.5) % Plt Count 517 H (150-450) k/uL MPV 8.0 Neutrophils % 77 % Lymphocytes % 16 % Monocytes % 5 % Eosinophils % 0 % Basophils % 0 % Neutrophils # 13.9 H (1.3-7.7) k/uL Lymphocytes # 3.0 (1.0-4.8) k/uL Monocytes # 0.8 (0-1.0) k/uL Eosinophils # 0.1 (0-0.7) k/uL Basophils # 0.1 (0-0.2) k/uL Hypochromasia Marked VBG pH (7.31-7.41) VBG pCO2 (37-51) mmHg VBG HCO3 (24-28) mmol/L Sodium 134 L (137-145) mmol/L Potassium 5.4 H (3.5-5.1) mmol/L Chloride 97 L (98-107) mmol/L Carbon Dioxide <5 L* (22-30) mmol/L Anion Gap mmol/L BUN 15 (9-20) mg/dL Creatinine 1.06 (0.66-1.25) mg/dL Est GFR (CKD-EPI)AfAm >90 (>60 ml/min/1.73 sqM) Est GFR (CKD-EPI)NonAf >90 (>60 ml/min/1.73 sqM) Glucose 549 H* (74-99) mg/dL POC Glucose (mg/dL) 430 H (70-110) mg/dL POC Glu Template Storage Clerk ID Edwar Ross Lactic Ac Sepsis Rflx Plasma Lactic Acid Benjamin (0.7-2.0) mmol/L Calcium 9.5 (8.4-10.2) mg/dL Phosphorus 5.8 H (2.5-4.5) mg/dL Magnesium 1.8 (1.6-2.3) mg/dL Total Bilirubin 0.7 (0.2-1.3) mg/dL AST 17 (17-59) U/L ALT 22 (4-49) U/L Alkaline Phosphatase 166 H (38-126) U/L Total Protein 7.3 (6.3-8.2) g/dL Albumin 4.9 (3.5-5.0) g/dL Acetone, Qual Positive (Negative) 11/06/24 11/06/24 11/06/24 Range/Units 06:25 06:25 07:25 WBC (3.8-10.6) k/uL RBC (4.30-5.90) m/uL Hgb (13.0-17.5) gm/dL Hct (39.0-53.0) % MCV (80.0-100.0) fL MCH (25.0-35.0) pg MCHC (31.0-37.0) g/dL RDW (11.5-15.5) % Plt Count (150-450) k/uL MPV Neutrophils % % Lymphocytes % % Monocytes % % Eosinophils % % Basophils % % Neutrophils # (1.3-7.7) k/uL Lymphocytes # (1.0-4.8) k/uL Monocytes # (0-1.0) k/uL Eosinophils # (0-0.7) k/uL Basophils # (0-0.2) k/uL Hypochromasia VBG pH 7.06 L* (7.31-7.41) VBG pCO2 21 L (37-51) mmHg VBG HCO3 6 L* (24-28) mmol/L Sodium (137-145) mmol/L Potassium (3.5-5.1) mmol/L Chloride (98-107) mmol/L Carbon Dioxide (22-30) mmol/L Anion Gap mmol/L BUN (9-20) mg/dL Creatinine (0.66-1.25) mg/dL Est GFR (CKD-EPI)AfAm (>60 ml/min/1.73 sqM) Est GFR (CKD-EPI)NonAf (>60 ml/min/1.73 sqM) Glucose (74-99) mg/dL POC Glucose (mg/dL) (70-110) mg/dL POC Glu Template Storage Clerk ID Lactic Ac Sepsis Rflx Y Plasma Lactic Acid Benjamin 3.5 H* (0.7-2.0) mmol/L Calcium (8.4-10.2) mg/dL Phosphorus (2.5-4.5) mg/dL Magnesium (1.6-2.3) mg/dL Total Bilirubin (0.2-1.3) mg/dL AST (17-59) U/L ALT (4-49) U/L Alkaline Phosphatase (38-126) U/L Total Protein (6.3-8.2) g/dL Albumin (3.5-5.0) g/dL Acetone, Qual (Negative) Critical Care Time Critical Care Time: Yes Critical Care Time: >35 minutes Disposition Clinical Impression: DKA (diabetic ketoacidosis) Disposition: ADMITTED IP TO THIS HOSP
[2024-11-06 07:34] LABS: ALT 22 U/L (4-49); AST 17 U/L (17-59); African American GFR (CKD) >90 (>60 ml/min/1.73 sqM); Albumin 4.9 g/dL (3.5-5.0); Alkaline Phosphatase 166 U/L (38-126); Blood Urea Nitrogen 15 mg/dL (9-20); Calcium 9.5 mg/dL (8.4-10.2); Chloride 97 mmol/L (98-107); Magnesium 1.8 mg/dL (1.6-2.3); Non-African American GFR(CKD) >90 (>60 ml/min/1.73 sqM); Phosphorus 5.8 mg/dL (2.5-4.5); Potassium 5.4 mmol/L (3.5-5.1); Sodium 134 mmol/L (137-145); Total Bilirubin 0.7 mg/dL (0.2-1.3); Total Protein 7.3 g/dL (6.3-8.2)
[2024-11-06 07:40] LABS: Glucose 549 mg/dL (74-99)
[2024-11-06 07:41] LABS: Carbon Dioxide <5 mmol/L (22-30)
[2024-11-06] MEDS ORDERED: NALOXONE 0.4 MG/ML 1 ML VIAL IV PRN (07:51)
[2024-11-06] MEDS ORDERED: MORPHINE SULFATE 4 MG/ML SYRINGE IV PRN (07:51)
[2024-11-06] MEDS ORDERED: ACETAMINOPHEN TAB 325 MG TAB PO PRN (07:51)
[2024-11-06] MEDS ORDERED: KETOROLAC 15 MG/ML 1 ML VIAL IVP PRN (07:51)
[2024-11-06 09:01] LABS: African American GFR (CKD) >90 (>60 ml/min/1.73 sqM); Blood Urea Nitrogen 15 mg/dL (9-20); Chloride 102 mmol/L (98-107); Non-African American GFR(CKD) >90 (>60 ml/min/1.73 sqM); Potassium 5.5 mmol/L (3.5-5.1); Sodium 138 mmol/L (137-145)
[2024-11-06 09:06] LABS: Glucose,Whole Blood 430 mg/dL (70-110)
[2024-11-06 09:06] LABS: Glucose,Whole Blood 478 mg/dL (70-110)
[2024-11-06] MEDS: INSULIN REGULAR BOLUS (FROM DRIP BAG) IV ONE (09:08)
[2024-11-06] MEDS: INSULIN REGULAR 100 UNIT in SODIUM CHLORIDE 0.9% 100 ML IV SCH (09:12)
[2024-11-06] MEDS: PANTOPRAZOLE 40 MG/10 ML VIAL IV SCH (09:15)
[2024-11-06] MEDS: SODIUM CHLORIDE 0.9% 1,000 ML IV SCH (09:17)
[2024-11-06 09:18] LABS: Carbon Dioxide <5 mmol/L (22-30); Glucose 559 mg/dL (74-99)
[2024-11-06 09:18] LABS: Appearance,Urine Clear (Clear); Bilirubin,Urine Negative (Negative); Blood,Urine Negative (Negative); Color,Urine Colorless; Glucose,Urine (UA) 4+ (Negative); Leukocyte Esterase,Urine Negative (Negative); Nitrite,Urine Negative (Negative); Protein,Urine Trace (Negative); Specific Gravity,Urine 1.022 (1.001-1.035); Urobilinogen,Urine <2.0 mg/dL (<2.0)
[2024-11-06 09:30] LABS: VBG PH 7.06 (7.31-7.41)
[2024-11-06 09:32] LABS: Ketones,Urine 4+ (Negative)
[2024-11-06 10:09] LABS: Glucose,Whole Blood 485 mg/dL (70-110)
[2024-11-06 11:10] LABS: Glucose,Whole Blood 400 mg/dL (70-110)
[2024-11-06 12:05] LABS: African American GFR (CKD) >90 (>60 ml/min/1.73 sqM); Blood Urea Nitrogen 15 mg/dL (9-20); Non-African American GFR(CKD) >90 (>60 ml/min/1.73 sqM)
[2024-11-06 12:07] LABS: Glucose,Whole Blood 338 mg/dL (70-110)
[2024-11-06 12:16] LABS: Chloride 106 mmol/L (98-107); Glucose 398 mg/dL (74-99); Sodium 142 mmol/L (137-145)
[2024-11-06 12:37] LABS: Carbon Dioxide <5 mmol/L (22-30)
[2024-11-06 12:41] LABS: Influenza A Not Detected (Not Detectd); Influenza B Not Detected (Not Detectd); RSV Not Detected (Not Detectd)
[2024-11-06 12:42] LABS: Glucose,Whole Blood 318 mg/dL (70-110)
[2024-11-06] MEDS: ONDANSETRON 4 MG/2 ML VIAL IVP PRN (12:44)
--- NOTE | 2024-11-06 13:25 | P.CNPUL ---
History of Present Illness Consult date: 11/06/24 Requesting physician: Michael Mayo Chief complaint: Diabetic ketoacidosis. History of present illness: Pulmonary consult dated November 06, 2024. 23-year-old white male with a history of type 1 diabetes, comes to the emergency department via EMS, for elevated blood sugars. The patient was admitted with a diagnosis of diabetic ketoacidosis, and apparently has been back to the emergency room a number of times, with this condition. The patient apparently has not been taking his medication i.e. his long-acting insulin, for the last 2 days. He comes into the emergency room complaining of weakness, nausea, vomitin g, and feeling very shaky. The last time he had this episode, was May 2024. The patient is seen in room 8. He is getting saline at 200 cc an hour, and insulin by continuous infusion at 5.73 units an hour. The patient is also on nasal O2 at 3 L. He states his only major medical problem is diabetes. He has not been feeling well for at least 2 days. White count is 18,000, hemoglobin 15.3, hematocrit 51.1, and platelet count 517,000. Venous blood gas shows a CO2 of 21, and a pH of 7.06. Sodium 142, potassium 5, chlorides 106, bicarbonate concentration less than 5, BUN 15, creatinine 1.09. Glucose was in the 500 range. Lactic acid 5.5. Phosphorus is 6. Acetones were positive. Viral studies were negative. No chest x-ray. EKG showed sinus tachycardia. Review of Systems REVIEW OF SYSTEMS: CONSTITUTIONAL: Weakness. NEUROLOGIC: [ Negative.] HEENT: [ Negative.] CARDIAC: [Negative.] PULMONARY: [Negative.] GI: Nausea and vomiting. : [Negative.] RHEUMATOLOGIC: [ Negative.] IMMUNOLOGIC: [ Negative.] ENDOCRINE: Elevated blood glucose. DERMATOLOGIC: [Negative.] Past Medical History Past Medical History: Diabetes Mellitus History of Any Multi-Drug Resistant Organisms: None Reported Past Surgical History: Ear Surgery, Tonsillectomy Past Anesthesia/Blood Transfusion Reactions: No Reported Reaction Past Psychological History: Anxiety, Depression Smoking Status: Vaper Past Alcohol Use History: Occasional Past Drug Use History: Marijuana Medications and Allergies Home Medications Medication Instructions Recorded Confirmed Type Insulin Lispro [humaLOG Kwikpen] See Protocol SQ AC-TID 05/19/24 11/06/24 History Insulin Glargine,Hum.rec.anlog 40 units SQ HS 11/06/24 11/06/24 History [Lantus Solostar Pen] Insulin Lispro [humaLOG Kwikpen] 12 unit SQ AC-TID 11/06/24 11/06/24 History Allergies Allergy/AdvReac Type Severity Reaction Status Date / Time No Known Allergies Allergy Verified 11/06/24 09:34 Physical Exam Osteopathic Statement: *. No significant issues noted on an osteopathic structural exam other than those noted in the History and Physical/Consult. Vitals: Vital Signs Temp Pulse Resp BP Pulse Ox 11/06/24 13:00 129 H 21 131/85 100 11/06/24 12:45 97.8 F 129 H 23 127/83 100 11/06/24 12:14 98.4 F 134 H 24 126/86 100 11/06/24 11:41 135 H 24 137/87 100 11/06/24 09:21 135 H 28 H 143/86 98 11/06/24 06:10 98.0 F 121 H 22 138/65 100 Intake and Output 11/05/24 11/06/24 11/06/24 22:59 06:59 14:59 Intake Total 205.7 Output Total 1200 Balance -994.3 Intake: Intake, IV Titration 205.7 Amount Insulin Regular 100 unit 5.7 In Sodium Chloride 0.9% 100 ml @ 0.1 UNITS/KG/HR 5.727 mls/hr IV .[id number] MAURY Rx#:[id number] Sodium Chloride 0.9% 1, 200 000 ml @ 200 mls/hr IV . Q5H MAURY Rx#:[id number] Output: Urine 1200 Other: Voiding Method Urinal Weight 56.699 kg No acute distress, oriented 3. Rapid respirations. Alert and awake. HEENT examination is grossly unremarkable. Mucous membranes are moist. No oral lesions. Neck supple. Full range of motion. No adenopathy thyromegaly or neck vein distention. Cardiovascular examination reveals regular rhythm rate. S1-S2 normal. No S3 or S4. No discernible murmur noted. The patient's heart rate is at 120 bpm. Lungs reveal clear breath sounds. Breath sounds are equal bilaterally. No adventitious lung sounds including wheezes rhonchi or crackles. Abdomen soft bowel sounds are heard. No masses or tenderness. Extremities are intact. No cyanosis clubbing or edema. Skin is without rash or lesion. Neurologic examination is brief but nonfocal. Results - Laboratory Findings CBC and BMP: 11/06/24:11/06/24 11:30 Abnormal lab findings: Abnormal Labs 11/06/24 11/06/24 11/06/24 06:10 06: 06:25 WBC 18.0 H MCV 101.5 H MCHC 29.9 L Plt Count 517 H Neutrophils # 13.9 H VBG pH VBG pCO2 VBG HCO3 Sodium 134 L Potassium 5.4 H Chloride 97 L Carbon Dioxide <5 L* Glucose 549 H* POC Glucose (mg/dL) 430 H Plasma Lactic Acid Benjamin Phosphorus 5.8 H Alkaline Phosphatase 166 H Urine Protein Urine Glucose (UA) Urine Ketones 11/06/24 11/06/24 11/06/24: 06:25 08:30 WBC MCV MCHC Plt Count Neutrophils # VBG pH 7.06 L* VBG pCO2 21 L VBG HCO3 6 L* Sodium Potassium Chloride Carbon Dioxide Glucose POC Glucose (mg/dL) Plasma Lactic Acid Benjamin 3.5 H* Phosphorus 5.9 H Alkaline Phosphatase Urine Protein Urine Glucose (UA) Urine Ketones 11/06/24 11/06/24 11/06/24 08:30 09:00 09:04 WBC MCV MCHC Plt Count Neutrophils # VBG pH VBG pCO2 VBG HCO3 Sodium Potassium 5.5 H Chloride Carbon Dioxide <5 L* Glucose 559 H* POC Glucose (mg/dL) 478 H Plasma Lactic Acid Benjamin Phosphorus Alkaline Phosphatase Urine Protein Trace H Urine Glucose (UA) 4+ H Urine Ketones 4+ H 11/06/24 11/06/24 11/06/24 10:06 11:09 11:30 WBC MCV MCHC Plt Count Neutrophils # VBG pH VBG pCO2 VBG HCO3 Sodium Potassium Chloride Carbon Dioxide Glucose POC Glucose (mg/dL) 485 H 400 H Plasma Lactic Acid Benjamin Phosphorus 6.0 H Alkaline Phosphatase Urine Protein Urine Glucose (UA) Urine Ketones 11/06/24 11/06/24 11/06/24 11:30 11:30 12:05 WBC MCV MCHC Plt Count Neutrophils # VBG pH VBG pCO2 VBG HCO3 Sodium Potassium Chloride Carbon Dioxide <5 L* Glucose 398 H POC Glucose (mg/dL) 338 H Plasma Lactic Acid Benjamin 5.5 H* Phosphorus Alkaline Phosphatase Urine Protein Urine Glucose (UA) Urine Ketones 11/06/24 12:41 WBC MCV MCHC Plt Count Neutrophils # VBG pH VBG pCO2 VBG HCO3 Sodium Potassium Chloride Carbon Dioxide Glucose POC Glucose (mg/dL) 318 H Plasma Lactic Acid Benjamin Phosphorus Alkaline Phosphatase Urine Protein Urine Glucose (UA) Urine Ketones Assessment and Plan Assessment: Acute diabetic ketoacidosis. Anion gap metabolic acidosis secondary to diabetic ketoacidosis. Type 1 diabetes mellitus. Noncompliance with medication. Plan: Plan dated November 06, 2024. The patient is seen in the emergency department, room 8. The patient was admitted with a episode of acute diabetic ketoacidosis. The patient has been a diabetic, since he was very young. The patient's last episode of DKA was in May 2024. Over the last couple days, he apparently has not been feeling well, with nausea, vomiting, and weakness. He apparently has not been taking all of his insulin as prescribed, over the last couple of days. Anyway, the patient is admitted to the intensive care unit. He is currently on 3 L nasal cannula. He is getting saline at 200 cc an hour. He has an insulin drip at 5.73 units an hour. We will continue to follow make recommendations. Prognosis is guarded. Dictation was produced using [employer] software. Please excuse any grammatical, word or spelling errors. Time with Patient: Greater than 30
[2024-11-06] MEDS: D5-0.45% NACL WITH KCL 20MEQ/L 1,000 ML IV SCH (13:57)
[2024-11-06 13:58] LABS: Glucose,Whole Blood 233 mg/dL (70-110)
[2024-11-06 15:17] LABS: Glucose,Whole Blood 166 mg/dL (70-110)
--- NOTE | 2024-11-06 15:58 | P.HPIM ---
History of Present Illness H&P Date: 11/06/24 Chief Complaint: Nausea, vomiting 24-year-old man with medical history of type 1 diabetes on insulin presented for nausea, vomiting. Patient has been noncompliant with his insulin. He is in active distress at the time my evaluation does not provide much history, therefore history is taken from ER provider signout and chart review. Apparently, he has not been taking his long-acting insulin, Lantus, for the last 2 days due to being unable to get it filled. This has happened to him before, and he knows when he is going into DKA. His last presentation was in May 2024. Reports nausea, vomiting, chills, abdominal pain. On my evaluation, patient was afebrile, 131/85, heart rate 133, tachypneic to 24, 100% on 2 L of nasal cannula. Initial CBC demonstrated findings of leukocytosis to 18, thrombocytosis to 517, MCV of 101.5. Sodium was 134, potassium was 5.4, chloride was 97, bicarb was less than 5, initial sugar was 549, initial lactic acid was 3.5, initial phosphorus was 5.8. Acetone was positive. Urinalysis was positive for glucose and ketones. Patient was bolused 2 L of normal saline and started on IV fluids and insulin drip. Repeat basic metabolic panel continued to demonstrate findings of hyperkalemia to 5.5 and bicarb of less than 5 with follow-up VBG showing a pH of 7.06, pCO2 of 21. Based on these findings, patient was admitted to the intensive care unit for DKA. All Systems reviewed and pertinent positives and negatives noted in HPI, all other symptoms are negative Gen: In moderate distress from nausea, non-toxic HEENT: normocephalic, atraumatic, hearing acuity is intant, mucous membranes moist CVS: perfusing all extremities well, no pitting edema, Respiratory: symmetric chest expansion, no accessory muscle use, GI: soft, NTTP, ND, : no suprapubic tenderness, no CVA tenderness MSK/Derm: no rashes, cyanosis Neuro: CN II-XII intact, no motor weakness, Psych: cooperative, euthymic mood, judgment and insight is intact Labs and imaging as above Assessment/plan: Diabetic ketoacidosis Type 1 diabetes Medication noncompliance secondary to inability to get insulin, social determinant of health -Admit patient to ICU on telemetry -Electrolytes every 4 hours -Continue insulin drip -Continue D5 half-normal saline with 20 mill equivalents of KCl -Zofran as needed, Reglan as needed -Morphine as needed, Toradol as needed, ibuprofen as needed, Tylenol as needed -Pantoprazole 40 mg IV daily Patient is full code Past Medical History Past Medical History: Diabetes Mellitus History of Any Multi-Drug Resistant Organisms: None Reported Past Surgical History: Ear Surgery, Tonsillectomy Past Anesthesia/Blood Transfusion Reactions: No Reported Reaction Smoking Status: Vaper Past Alcohol Use History: Occasional Past Drug Use History: Marijuana Additional Drug Use History / Comment(s): smoke 1-2 cigs per day Medications and Allergies Home Medications Medication Instructions Recorded Confirmed Type Insulin Lispro [humaLOG Kwikpen] See Protocol SQ AC-TID 05/19/24 11/06/24 History Insulin Glargine,Hum.rec.anlog 40 units SQ HS 11/06/24 11/06/24 History [Lantus Solostar Pen] Insulin Lispro [humaLOG Kwikpen] 12 unit SQ AC-TID 11/06/24 11/06/24 History Allergies Allergy/AdvReac Type Severity Reaction Status Date / Time No Known Allergies Allergy Verified 11/06/24 09:34 Physical Exam Osteopathic Statement: *. No significant issues noted on an osteopathic struct ural exam other than those noted in the History and Physical/Consult. Vitals: Vital Signs Temp Pulse Resp BP Pulse Ox 11/06/24 15:00 122 H 20 112/69 100 11/06/24 14:30 125 H 20 99/62 100 11/06/24 14:00 122 H 22 121/71 100 11/06/24 13:30 124 H 24 113/78 100 11/06/24 13:00 129 H 21 131/85 100 11/06/24 12:45 97.8 F 129 H 23 127/83 100 11/06/24 12:14 98.4 F 134 H 24 126/86 100 11/06/24 11:41 135 H 24 137/87 100 11/06/24 09:21 135 H 28 H 143/86 98 11/06/24 06:10 98.0 F 121 H 22 138/65 100 Intake and Output 11/06/24 11/06/24 11/06/24 06:59 14:59 22:59 Intake Total 411.4 155.7 Output Total 1200 Balance -788.6 155.7 Intake: Intake, IV Titration 411.4 155.7 Amount D5-0.45% NaCl with KCl 150 20Meq/l 1,000 ml @ 150 mls/hr IV .Q6H40M [facility] Rx# :[id number] Insulin Regular 100 unit 11.4 5.7 In Sodium Chloride 0.9% 100 ml @ 0.1 UNITS/KG/HR 5.727 mls/hr IV .[id number] [facility] Rx#:[id number] Sodium Chloride 0.9% 1, 400 000 ml @ 200 mls/hr IV . Q5H [facility] Rx#:[id number] Output: Urine 1200 Other: Voiding Method Urinal Weight 56.699 kg 56.699 kg Results CBC & Chem 7: 11/06/24 06:25 11/06/24 11:30 Labs: Abnormal Lab Results - Last 24 Hours (Table) 11/06/24 11/06/24 11/06/24 Range/Units 06:10 06:25 06:25 WBC 18.0 H (3.8-10.6) k/uL MCV 101.5 H (80.0-100.0) fL MCHC 29.9 L (31.0-37.0) g/dL Plt Count 517 H (150-450) k/uL Neutrophils # 13.9 H (1.3-7.7) k/uL VBG pH (7.31-7.41) VBG pCO2 (37-51) mmHg VBG HCO3 (24-28) mmol/L Sodium 134 L (137-145) mmol/L Potassium 5.4 H (3.5-5.1) mmol/L Chloride 97 L (98-107) mmol/L Carbon Dioxide <5 L* (22-30) mmol/L Glucose 549 H* (74-99) mg/dL POC Glucose (mg/dL) 430 H (70-110) mg/dL Plasma Lactic Acid Benjamin (0.7-2.0) mmol/L Phosphorus 5.8 H (2.5-4.5) mg/dL Alkaline Phosphatase 166 H (38-126) U/L Urine Protein (Negative) Urine Glucose (UA) (Negative) Urine Ketones (Negative) 11/06/24 11/06/24 11/06/24 Range/Units : 06:25 08:30 WBC (3.8-10.6) k/uL MCV (80.0-100.0) fL MCHC (31.0-37.0) g/dL Plt Count (150-450) k/uL Neutrophils # (1.3-7.7) k/uL VBG pH 7.06 L* (7.31-7.41) VBG pCO2 21 L (37-51) mmHg VBG HCO3 6 L* (24-28) mmol/L Sodium (137-145) mmol/L Potassium (3.5-5.1) mmol/L Chloride (98-107) mmol/L Carbon Dioxide (22-30) mmol/L Glucose (74-99) mg/dL POC Glucose (mg/dL) (70-110) mg/dL Plasma Lactic Acid Benjamin 3.5 H* (0.7-2.0) mmol/L Phosphorus 5.9 H (2.5-4.5) mg/dL Alkaline Phosphatase (38-126) U/L Urine Protein (Negative) Urine Glucose (UA) (Negative) Urine Ketones (Negative) 11/06/24 11/06/24 11/06/24 Range/Units 08:30 09:00 09:04 WBC (3.8-10.6) k/uL MCV (80.0-100.0) fL MCHC (31.0-37.0) g/dL Plt Count (150-450) k/uL Neutrophils # (1.3-7.7) k/uL VBG pH (7.31-7.41) VBG pCO2 (37-51) mmHg VBG HCO3 (24-28) mmol/L Sodium (137-145) mmol/L Potassium 5.5 H (3.5-5.1) mmol/L Chloride (98-107) mmol/L Carbon Dioxide <5 L* (22-30) mmol/L Glucose 559 H* (74-99) mg/dL POC Glucose (mg/dL) 478 H (70-110) mg/dL Plasma Lactic Acid Benjamin (0.7-2.0) mmol/L Phosphorus (2.5-4.5) mg/dL Alkaline Phosphatase (38-126) U/L Urine Protein Trace H (Negative) Urine Glucose (UA) 4+ H (Negative) Urine Ketones 4+ H (Negative) 11/06/24 11/06/24 11/06/24 Range/Units 10:06 11:09 11:30 WBC (3.8-10.6) k/uL MCV (80.0-100.0) fL MCHC (31.0-37.0) g/dL Plt Count (150-450) k/uL Neutrophils # (1.3-7.7) k/uL VBG pH (7.31-7.41) VBG pCO2 (37-51) mmHg VBG HCO3 (24-28) mmol/L Sodium (137-145) mmol/L Potassium (3.5-5.1) mmol/L Chloride (98-107) mmol/L Carbon Dioxide (22-30) mmol/L Glucose (74-99) mg/dL POC Glucose (mg/dL) 485 H 400 H (70-110) mg/dL Plasma Lactic Acid Benjamin (0.7-2.0) mmol/L Phosphorus 6.0 H (2.5-4.5) mg/dL Alkaline Phosphatase (38-126) U/L Urine Protein (Negative) Urine Glucose (UA) (Negative) Urine Ketones (Negative) 11/06/24 11/06/24 11/06/24 Range/Units 11:30 11:30 12:05 WBC (3.8-10.6) k/uL MCV (80.0-100.0) fL MCHC (31.0-37.0) g/dL Plt Count (150-450) k/uL Neutrophils # (1.3-7.7) k/uL VBG pH (7.31-7.41) VBG pCO2 (37-51) mmHg VBG HCO3 (24-28) mmol/L Sodium (137-145) mmol/L Potassium (3.5-5.1) mmol/L Chloride (98-107) mmol/L Carbon Dioxide <5 L* (22-30) mmol/L Glucose 398 H (74-99) mg/dL POC Glucose (mg/dL) 338 H (70-110) mg/dL Plasma Lactic Acid Benjamin 5.5 H* (0.7-2.0) mmol/L Phosphorus (2.5-4.5) mg/dL Alkaline Phosphatase (38-126) U/L Urine Protein (Negative) Urine Glucose (UA) (Negative) Urine Ketones (Negative) 11/06/24 11/06/24 11/06/24 Range/Units 12:41 13:56 15:15 WBC (3.8-10.6) k/uL MCV (80.0-100.0) fL MCHC (31.0-37.0) g/dL Plt Count (150-450) k/uL Neutrophils # (1.3-7.7) k/uL VBG pH (7.31-7.41) VBG pCO2 (37-51) mmHg VBG HCO3 (24-28) mmol/L Sodium (137-145) mmol/L Potassium (3.5-5.1) mmol/L Chloride (98-107) mmol/L Carbon Dioxide (22-30) mmol/L Glucose (74-99) mg/dL POC Glucose (mg/dL) 318 H 233 H 166 H (70-110) mg/dL Plasma Lactic Acid Benjamin (0.7-2.0) mmol/L Phosphorus (2.5-4.5) mg/dL Alkaline Phosphatase (38-126) U/L Urine Protein (Negative) Urine Glucose (UA) (Negative) Urine Ketones (Negative) Thrombosis Risk Factor Assmnt - Choose All That Apply Any of the Below Risk Factors Present?: No Other Risk Factors: No Other congenital or acquired thrombophilia - If yes, enter type in comment: No Thrombosis Risk Factor Assessment Level: Very Low Risk
[2024-11-06 16:19] LABS: African American GFR (CKD) >90 (>60 ml/min/1.73 sqM); Anion Gap 26 mmol/L; Blood Urea Nitrogen 14 mg/dL (9-20); Calcium 9.1 mg/dL (8.4-10.2); Chloride 111 mmol/L (98-107); Glucose 184 mg/dL (74-99); Non-African American GFR(CKD) >90 (>60 ml/min/1.73 sqM); Phosphorus 3.2 mg/dL (2.5-4.5); Potassium 4.3 mmol/L (3.5-5.1); Sodium 143 mmol/L (137-145)
[2024-11-06 16:20] LABS: Glucose,Whole Blood 131 mg/dL (70-110)
[2024-11-06 16:55] LABS: Carbon Dioxide 6 mmol/L (22-30)
[2024-11-06 17:23] LABS: Glucose,Whole Blood 124 mg/dL (70-110)
[2024-11-06 18:17] LABS: Glucose,Whole Blood 158 mg/dL (70-110)
[2024-11-06] MEDS: METOCLOPRAMIDE 5 MG/ML 2 ML VIAL IVP PRN (18:59)
[2024-11-06 19:11] LABS: Glucose,Whole Blood 186 mg/dL (70-110)
[2024-11-06 19:59] LABS: Glucose,Whole Blood 188 mg/dL (70-110)
[2024-11-06 20:43] LABS: African American GFR (CKD) >90 (>60 ml/min/1.73 sqM); Anion Gap 18 mmol/L; Blood Urea Nitrogen 12 mg/dL (9-20); Calcium 8.7 mg/dL (8.4-10.2); Carbon Dioxide 10 mmol/L (22-30); Chloride 109 mmol/L (98-107); Glucose 175 mg/dL (74-99); Non-African American GFR(CKD) >90 (>60 ml/min/1.73 sqM); Potassium 4.3 mmol/L (3.5-5.1); Sodium 137 mmol/L (137-145)
[2024-11-06 21:20] LABS: Glucose,Whole Blood 166 mg/dL (70-110)
[2024-11-06 22:15] LABS: Glucose,Whole Blood 165 mg/dL (70-110)
[2024-11-06 23:16] LABS: Glucose,Whole Blood 153 mg/dL (70-110)
[2024-11-07 00:14] LABS: Glucose,Whole Blood 196 mg/dL (70-110)
[2024-11-07 00:59] LABS: African American GFR (CKD) >90 (>60 ml/min/1.73 sqM); Anion Gap 16 mmol/L; Blood Urea Nitrogen 10 mg/dL (9-20); Calcium 9.2 mg/dL (8.4-10.2); Carbon Dioxide 13 mmol/L (22-30); Chloride 107 mmol/L (98-107); Glucose 199 mg/dL (74-99); Non-African American GFR(CKD) >90 (>60 ml/min/1.73 sqM); Potassium 4.3 mmol/L (3.5-5.1); Sodium 136 mmol/L (137-145)
[2024-11-07 01:12] LABS: Glucose,Whole Blood 222 mg/dL (70-110)
[2024-11-07 02:13] LABS: Glucose,Whole Blood 188 mg/dL (70-110)
[2024-11-07 04:08] LABS: Glucose,Whole Blood 172 mg/dL (70-110)
[2024-11-07 04:39] LABS: African American GFR (CKD) >90 (>60 ml/min/1.73 sqM); Anion Gap 14 mmol/L; Blood Urea Nitrogen 8 mg/dL (9-20); Calcium 9.2 mg/dL (8.4-10.2); Carbon Dioxide 15 mmol/L (22-30); Chloride 107 mmol/L (98-107); Glucose 182 mg/dL (74-99); Non-African American GFR(CKD) >90 (>60 ml/min/1.73 sqM); Sodium 136 mmol/L (137-145)
[2024-11-07 05:21] LABS: Glucose,Whole Blood 161 mg/dL (70-110)
[2024-11-07 06:26] LABS: Glucose,Whole Blood 152 mg/dL (70-110)
[2024-11-07 07:09] LABS: Glucose,Whole Blood 154 mg/dL (70-110)
[2024-11-07 08:04] LABS: Glucose,Whole Blood 224 mg/dL (70-110)
[2024-11-07 08:24] LABS: African American GFR (CKD) >90 (>60 ml/min/1.73 sqM); Anion Gap 12 mmol/L; Blood Urea Nitrogen 6 mg/dL (9-20); Calcium 8.9 mg/dL (8.4-10.2); Carbon Dioxide 18 mmol/L (22-30); Chloride 104 mmol/L (98-107); Glucose 208 mg/dL (74-99); Non-African American GFR(CKD) >90 (>60 ml/min/1.73 sqM); Potassium 3.7 mmol/L (3.5-5.1); Sodium 134 mmol/L (137-145)
[2024-11-07 08:57] LABS: Glucose,Whole Blood 186 mg/dL (70-110)
[2024-11-07] MEDS ORDERED: DEXTROSE 50% SYRINGE 50 ML IVP PRN ×2 (09:50)
[2024-11-07] MEDS: INSULIN GLARGINE (LANTUS) 100 UNIT/ML SYR SQ STA (10:12)
[2024-11-07 10:24] VITALS: BMI 20.9
[2024-11-07 10:36] VITALS: RESP 18; TEMP 98.4
[2024-11-07] MEDS: IBUPROFEN 400 MG TAB PO PRN (10:47)
--- NOTE | 2024-11-07 11:02 | P.PN ---
Subjective Progress Note Date: 11/07/24 Principal diagnosis: Diabetic ketoacidosis Pulmonary consult dated November 06, 2024. 23-year-old white male with a history of type 1 diabetes, comes to the emergency department via EMS, for elevated blood sugars. The patient was admitted with a diagnosis of diabetic ketoacidosis, and apparently has been back to the emergency room a number of times, with this condition. The patient apparently has not been taking his medication i.e. his long-acting insulin, for the last 2 days. He comes into the emergency room complaining of weakness, nausea, vomiting, and feeling very shaky. The last time he had this episode, was May 2024. The patient is seen in room 8. He is getting saline at 200 cc an hour, and insulin by continuous infusion at 5.73 units an hour. The patient is also on nasal O2 at 3 L. He states his only major medical problem is diabetes. He has not been feeling well for at least 2 days. White count is 18,000, hemoglobin 15.3, hematocrit 51.1, and platelet count 517,000. Venous blood gas shows a CO2 of 21, and a pH of 7.06. Sodium 142, potassium 5, chlorides 106, bicarbonate concentration less than 5, BUN 15, creatinine 1.09. Glucose was in the 500 range. Lactic acid 5.5. Phosphorus is 6. Acetones were positive. Viral studies were negative. No chest x-ray. EKG showed sinus tachycardia. Progress note dated November 07, 2024. 23-year-old male seen in the emergency department yesterday, with diabetic ketoacidosis. He is seen today in room 253. He is on room air. He is getting D5 with half-normal saline and 20 mill colons of potassium at 150 cc an hour. Insulin drip is at 1.4 units an hour. His bicarbonate concentration is 18. His anion gap is 12, and his glucose is 186. The patient can be transition, and transferred out of the intensive care unit. Clinically he is doing well. He is on room air. Objective - Vital Signs Vital signs: Vital Signs Temp 98.4 F 11/07/24 10:31 Pulse 86 11/07/24 10:31 Resp 18 11/07/24 10:31 BP 107/67 11/07/24 10:31 Pulse Ox 100 11/07/24 10:31 FiO2 Intake & Output 11/06/24 11/07/24 11/07/24 18:59 06:59 18:59 Intake Total 9676.412 3545 690 Output Total 1200 1975 0 Balance -138.850 167 690 Weight 56.699 kg 53.6 kg 53.6 kg Intake: IV 1650 450 D5-0.45% NaCl with KCl 1650 450 20Meq/l 1,000 ml @ 150 mls/hr IV .Q6H40M [facility] Rx# :[id number] Intake, IV Titration 1061.150 150 Amount D5-0.45% NaCl with KCl 600 150 20Meq/l 1,000 ml @ 150 mls/hr IV .Q6H40M [facility] Rx# :[id number] Insulin Regular 100 unit 61.150 In Sodium Chloride 0.9% 100 ml @ 0.1 UNITS/KG/HR 5.727 mls/hr IV .[id number] [facility] Rx#:[id number] Sodium Chloride 0.9% 1, 400 000 ml @ 200 mls/hr IV . Q5H [facility] Rx#:[id number] Oral 342 240 Output: Urine 1200 1975 0 Other: Voiding Method Urinal Urinal Urinal - Exam No acute distress, oriented 3. HEENT examination is grossly unremarkable. Mucous membranes are moist. No oral lesions. Neck supple. Full range of motion. No adenopathy thyromegaly or neck vein dist ention. Cardiovascular examination reveals regular rhythm rate. S1-S2 normal. No S3 or S4. No discernible murmur noted. Lungs reveal clear breath sounds. Breath sounds are equal bilaterally. No adventitious lung sounds including wheezes rhonchi or crackles. Abdomen soft bowel sounds are heard. No masses or tenderness. Extremities are intact. No cyanosis clubbing or edema. Skin is without rash or lesion. Neurologic examination is brief but nonfocal. - Labs CBC & Chem 7: 11/06/24 06:25 11/07/24 07:53 Labs: Abnormal Lab Results - Last 24 Hours (Table) 11/06/24 11/06/24 11/06/24 Range/Units 11:09 11:30 11:30 Sodium (137-145) mmol/L Chloride (98-107) mmol/L Carbon Dioxide <5 L* (22-30) mmol/L BUN (9-20) mg/dL Creatinine (0.66-1.25) mg/dL Glucose 398 H (74-99) mg/dL POC Glucose (mg/dL) 400 H (70-110) mg/dL Plasma Lactic Acid Benjamin (0.7-2.0) mmol/L Phosphorus 6.0 H (2.5-4.5) mg/dL 11/06/24 11/06/24 11/06/24 Range/Units 11:30 12:05 12:41 Sodium (137-145) mmol/L Chloride (98-107) mmol/L Carbon Dioxide (22-30) mmol/L BUN (9-20) mg/dL Creatinine (0.66-1.25) mg/dL Glucose (74-99) mg/dL POC Glucose (mg/dL) 338 H 318 H (70-110) mg/dL Plasma Lactic Acid Benjamin 5.5 H* (0.7-2.0) mmol/L Phosphorus (2.5-4.5) mg/dL 11/06/24 11/06/24 11/06/24 Range/Units 13:56 15:09 15:15 Sodium (137-145) mmol/L Chloride (98-107) mmol/L Carbon Dioxide (22-30) mmol/L BUN (9-20) mg/dL Creatinine (0.66-1.25) mg/dL Glucose (74-99) mg/dL POC Glucose (mg/dL) 233 H 166 H (70-110) mg/dL Plasma Lactic Acid Benjamin 2.6 H* (0.7-2.0) mmol/L Phosphorus (2.5-4.5) mg/dL 11/06/24 11/06/24 11/06/24 Range/Units 15:17 16:19 17:21 Sodium (137-145) mmol/L Chloride 111 H (98-107) mmol/L Carbon Dioxide 6 L* (22-30) mmol/L BUN (9-20) mg/dL Creatinine (0.66-1.25) mg/dL Glucose 184 H (74-99) mg/dL POC Glucose (mg/dL) 131 H 124 H (70-110) mg/dL Plasma Lactic Acid Benjamin (0.7-2.0) mmol/L Phosphorus (2.5-4.5) mg/dL 11/06/24 11/06/2425 Range/Units 18:15 19:09 19:54 Sodium (137-145) mmol/L Chloride 109 H (98-107) mmol/L Carbon Dioxide 10 L (22-30) mmol/L BUN (9-20) mg/dL Creatinine (0.66-1.25) mg/dL Glucose 175 H (74-99) mg/dL POC Glucose (mg/dL) 158 H 186 H (70-110) mg/dL Plasma Lactic Acid Benjamin (0.7-2.0) mmol/L Phosphorus (2.5-4.5) mg/dL 11/06/24 11/06/24 11/06/24 Range/Units 19:58 21:18 22:14 Sodium (137-145) mmol/L Chloride (98-107) mmol/L Carbon Dioxide (22-30) mmol/L BUN (9-20) mg/dL Creatinine (0.66-1.25) mg/dL Glucose (74-99) mg/dL POC Glucose (mg/dL) 188 H 166 H 165 H (70-110) mg/dL Plasma Lactic Acid Benjamin (0.7-2.0) mmol/L Phosphorus (2.5-4.5) mg/dL 11/06/24 11/07/24 11/07/24 Range/Units 23:14 00:06 00:13 Sodium 136 L (137-145) mmol/L Chloride (98-107) mmol/L Carbon Dioxide 13 L (22-30) mmol/L BUN (9-20) mg/dL Creatinine (0.66-1.25) mg/dL Glucose 199 H (74-99) mg/dL POC Glucose (mg/dL) 153 H 196 H (70-110) mg/dL Plasma Lactic Acid Benjamin (0.7-2.0) mmol/L Phosphorus (2.5-4.5) mg/dL 11/07/24 11/07/24 11/07/24 Range/Units 01:10 02:11 03:59 Sodium 136 L (137-145) mmol/L Chloride (98-107) mmol/L Carbon Dioxide 15 L (22-30) mmol/L BUN 8 L (9-20) mg/dL Creatinine 0.64 L (0.66-1.25) mg/dL Glucose 182 H (74-99) mg/dL POC Glucose (mg/dL) 222 H 188 H (70-110) mg/dL Plasma Lactic Acid Benjamin (0.7-2.0) mmol/L Phosphorus (2.5-4.5) mg/dL 11/07/24 11/07/24 11/07/24 Range/Units 04:06 05:19 06:25 Sodium (137-145) mmol/L Chloride (98-107) mmol/L Carbon Dioxide (22-30) mmol/L BUN (9-20) mg/dL Creatinine (0.66-1.25) mg/dL Glucose (74-99) mg/dL POC Glucose (mg/dL) 172 H 161 H 152 H (70-110) mg/dL Plasma Lactic Acid Benjamin (0.7-2.0) mmol/L Phosphorus (2.5-4.5) mg/dL 11/07/24 11/07/24 11/07/24 Range/Units 07:08 07:53 07:57 Sodium 134 L (137-145) mmol/L Chloride (98-107) mmol/L Carbon Dioxide 18 L (22-30) mmol/L BUN 6 L (9-20) mg/dL Creatinine 0.56 L (0.66-1.25) mg/dL Glucose 208 H (74-99) mg/dL POC Glucose (mg/dL) 154 H 224 H (70-110) mg/dL Plasma Lactic Acid Benjamin (0.7-2.0) mmol/L Phosphorus (2.5-4.5) mg/dL 11/07/24 Range/Units 08:56 Sodium (137-145) mmol/L Chloride (98-107) mmol/L Carbon Dioxide (22-30) mmol/L BUN (9-20) mg/dL Creatinine (0.66-1.25) mg/dL Glucose (74-99) mg/dL POC Glucose (mg/dL) 186 H (70-110) mg/dL Plasma Lactic Acid Benjamin (0.7-2.0) mmol/L Phosphorus (2.5-4.5) mg/dL Assessment and Plan Assessment: Acute diabetic ketoacidosis. Anion gap metabolic acidosis secondary to diabetic ketoacidosis. Type 1 diabetes mellitus. Noncompliance with medication. Plan: Plan dated November 06, 2024. The patient is seen in the emergency department, room 8. The patient was admitted with a episode of acute diabetic ketoacidosis. The patient has been a diabetic, since he was very young. The patient's last episode of DKA was in May 2024. Over the last couple days, he apparently has not been feeling well, with nausea, vomiting, and weakness. He apparently has not been taking all of his insulin as prescribed, over the last couple of days. Anyway, the piedad davis is admitted to the intensive care unit. He is currently on 3 L nasal cannula. He is getting saline at 200 cc an hour. He has an insulin drip at 5.73 units an hour. We will continue to follow make recommendations. Prognosis is guarded. Dictation was produced using [employer] software. Please excuse any grammatical, word or spelling errors. Plan dated November 07, 2024. The patient is seen in the intensive care unit, room 253. He is on room air. His insulin drip at 1.4 units an hour. Sodium 134, potassium 3.7, chlorides 104, CO2 18, BUN 12, creatinine 0.6 and glucose 186. The patient is getting an insulin drip at 1.4 units an hour. The patient is on D5.45 with 20 mill colons of potassium at 150 cc an hour. The patient can be transition, and transferred out of the intensive care unit. Clinically he is very stable. He has no complaints today. We will continue to follow moving forward only as needed. Prognosis is thought to be generally good. Dictation was produced using [employer] software. Please excuse any grammatical, word or spelling errors. Time with Patient: Less than 30
[2024-11-07 11:53] LABS: Glucose,Whole Blood 156 mg/dL (70-110)
--- NOTE | 2024-11-07 12:38 | P.DS ---
Providers Date of admission: 11/06/24 07:48 Expected date of discharge: 11/07/24 Attending physician: Michael Mayo Consults: 11/06/24 10:56 Consult Physician Urgent Consulting Provider: Negro Barros Reason/Comments: DKA Do you want consulting provider notified?: Already Contacted [facility] Hospital Course: Diabetic ketoacidosis Type 1 diabetes Medication noncompliance secondary to inability to get insulin, social determinant of health Hospital Course: 24-year-old man with medical history of type 1 diabetes on insulin presented for nausea, vomiting. Patient has been noncompliant with his insulin. In the ER, patient was afebrile, 131/85, heart rate 133, tachypneic to 24, 100% on 2 L of nasal cannula. Initial CBC demonstrated findings of leukocytosis to 18, thrombocytosis to 517, MCV of 101.5. Sodium was 134, potassium was 5.4, chloride was 97, bicarb was less than 5, initial sugar was 549, initial lactic acid was 3.5, initial phosphorus was 5.8. Acetone was positive. Urinalysis was positive for glucose and ketones. Patient was bolused 2 L of normal saline and started on IV fluids and insulin drip. Repeat basic metabolic panel continued to demonstrate findings of hyperkalemia to 5.5 and bicarb of less than 5 with follow-up VBG showing a pH of 7.06, pCO2 of 21. Based on these findings, patient was admitted to the intensive care unit for DKA. Patient was started on insulin drip, electrolytes were monitored closely. Patient quickly recovered faster than anticipated admission and had a closed anion gap while tolerating diet. He was subsequently discharged home with new prescriptions for Lantus, test trips, Humalog sent to pharmacy. I did discuss with pharmacy to ensure that patient's insurance covered these medications considering patient told me that his change in insurance this year prevented him from getting his appropriate medication. Patient should follow-up with his primary care doctor upon discharge. I spent 38 minutes coordinating this discharge. Gen: In no apparent distress, non-toxic HEENT: normocephalic, atraumatic, hearing acuity is intant, mucous membranes moist CVS: perfusing all extremities well, no pitting edema, Respiratory: symmetric chest expansion, no accessory muscle use, GI: soft, NTTP, ND, : no suprapubic tenderness, no CVA tenderness MSK/Derm: no rashes, cyanosis Neuro: CN II-XII intact, no motor weakness, Psych: cooperative, euthymic mood, judgment and insight is intact Patient Condition at Discharge: Good Plan - Discharge Summary New Discharge Prescriptions: New Atorvastatin [Lipitor] 20 mg PO HS #30 tablet Blood Sugar Diagnostic [Test Strips] 1 strip MISCELLANE QID #180 strip Acetaminophen Tab [Tylenol] 650 mg PO Q6HR PRN tab PRN Reason: Mild Pain Or Fever > 100.5 Changed Insulin Glargine,Hum.rec.anlog [Lantus Solostar Pen] 40 units SQ HS #1 each Insulin Lispro [humaLOG Kwikpen] 12 unit SQ AC-TID #1 each Discontinued Insulin Lispro [humaLOG Kwikpen] See Protocol SQ AC-TID Discharge Medication List Acetaminophen Tab [Tylenol] 650 mg PO Q6HR PRN tab 11/07/24 [Rx] Atorvastatin [Lipitor] 20 mg PO HS #30 tablet 11/07/24 [Rx] Blood Sugar Diagnostic [Test Strips] 1 strip MISCELLANE QID #180 strip 11/07/24 [Rx] Insulin Glargine,Hum.rec.anlog [Lantus Solostar Pen] 40 units SQ HS #1 each 11/07/24 [Rx] Insulin Lispro [humaLOG Kwikpen] 12 unit SQ AC-TID #1 each 11/07/24 [Rx] Follow up Appointment(s)/Referral(s): Juan Garnett DO [Primary Care Provider] - 11/11/24 11:00 am Discharge/Stand Alone Forms: Diabetes Self-Management, Community Resources Discharge Disposition: HOME SELF-CARE
[2024-11-07] MEDS: INSULIN LISPRO (HumaLOG) 100 UNIT/ML 10 mL VL SQ SCH ×2 (12:48)
[2024-11-07 15:29] VITALS: BP 95/57; PULSE 100
[2024-11-07 16:28] LABS: Potassium 3.4 mmol/L (3.5-5.1)
[2024-11-07 16:29] LABS: African American GFR (CKD) >90 (>60 ml/min/1.73 sqM); Anion Gap 7 mmol/L; Blood Urea Nitrogen 7 mg/dL (9-20); Calcium 9.1 mg/dL (8.4-10.2); Carbon Dioxide 23 mmol/L (22-30); Chloride 105 mmol/L (98-107); Glucose 144 mg/dL (74-99); Non-African American GFR(CKD) >90 (>60 ml/min/1.73 sqM); Phosphorus 1.4 mg/dL (2.5-4.5); Sodium 135 mmol/L (137-145)
[2024-11-07 16:52] LABS: Glucose,Whole Blood 102 mg/dL (70-110)
[2024-11-08] MEDS ORDERED: INSULIN GLARGINE (LANTUS) 100 UNIT/ML SYR SQ SCH (07:00)
== END 2024-11-07 17:03 | disposition home or self-care (01) | DRG 420 ==
LOC: EC 06:07 → 3SCARD 07:48 → 2SICU 11:03 → 4SSUR 11-07 10:18
PROVIDERS: ADMIT Student in an Organized Health Care Education/Training Program; ATTEND Student in an Organized Health Care Education/Training Program
DX: E10.10 Type 1 diabetes mellitus with ketoacidosis without coma (principal); D75.839 Thrombocytosis, unspecified; Z79.4 Long term (current) use of insulin; E87.5 Hyperkalemia; F17.210 Nicotine dependence, cigarettes, uncomplicated; T38.3X6A Underdosing of insulin and oral hypoglycemic [antidiabetic] drugs, initial encounter; Z91.148 Patient's other noncompliance with medication regimen for other reason
CPT/HCPCS: 36415; 80048; 80051; 80053; 81003; 82009; 82565; 82803; 82947; 83605; 83735; 84100; 84520; 85025; 87636; 93005; 96361; 96374; 96375; 99291